=== PATIENT | male | born 1965 | race Caucasian/White ===

== ENCOUNTER 2017-02-02 14:13 | Emergency (ER) | payer OTHER ==
[~2017-02-02] VITALS: Ht 182.9 cm; Wt 64.5 kg
[2017-02-02 14:17] VITALS: TEMP 36.4; Ht 182.9 cm; Wt 64.5 kg
[2017-02-02] MEDS ORDERED: HYDROCODONE/ACETAMOPHEN 5/325MG TAB PO STA (14:59)
[2017-02-02] MEDS ORDERED: CYCLOBENZAPRINE HCL 10 MG TAB PO STA (14:59)
--- NOTE | 2017-02-02 15:44 | DIAGNOSTIC IMAGING REPORT ---
LEFT SHOULDER 3 VIEWS CLINICAL HISTORY: Left shoulder injury and pain. FINDINGS: 3 views of left shoulder are obtained. No prior studies are available for comparison at the time of dictation. The skeletal structures are well mineralized. No fracture or dislocation is seen. The glenohumeral and acromioclavicular joints are preserved. The overlying soft tissues are within normal limits. Imaged left lung parenchyma appears clear. IMPRESSION: Unremarkable radiographic assessment of the left shoulder. Electronically signed by: Fabian Dubon M.D. 02/02/2017 3:42 PM Dictated Date/Time: 02/02/2017 3:41 PM
--- NOTE | 2017-02-02 15:48 | DIAGNOSTIC IMAGING REPORT ---
LEFT ELBOW 3 VIEWS HISTORY: Left elbow pain/injury COMPARISON: None. FINDINGS: There is no fracture or dislocation. Soft tissues are unremarkable. No radiopaque foreign bodies. No elbow effusion. IMPRESSION: No fractures. Electronically signed by: Reed Mayes M.D. 02/02/2017 3:47 PM Dictated Date/Time: 02/02/2017 3:45 PM
[2017-02-02] MEDS ORDERED: TRAM-10 PO (16:11)
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
[2017-02-02 16:29] VITALS: BP 132/87; PULSE 65; O2SAT 97
== END 2017-02-02 16:31 | disposition home or self-care (01) ==
LOC: C.EDB 14:15
DX: S16.1XXA Strain of muscle, fascia and tendon at neck level, initial encounter (principal); S46.912A Strain of unspecified muscle, fascia and tendon at shoulder and upper arm level, left arm, initial encounter; Y04.0XXA Assault by unarmed brawl or fight, initial encounter; F17.210 Nicotine dependence, cigarettes, uncomplicated

== ENCOUNTER 2020-03-11 08:24 | Inpatient (IN) ==
[2020-03-11] MEDS ORDERED: ACETAMINOPHEN 500 MG TAB PO STA (08:56)
--- NOTE | 2020-03-11 09:04 | Emergency Department Note ---
Impression & Plan Sepsis, Cough, Dysuria ED Provider Note CHIEF COMPLAINT: "I don't know if I have the flu or that coronavirus" HISTORY OF PRESENT ILLNESS: 54 year old male patient arrives with complaint of "I will never have the flu or that coronavirus". The patient reports fever, nausea, and fatigue for the past 2 to 3 days. The patient does admit to some dysuria and "passing stones" in his urine for approximately the past week which is not normal for him. He denies any history of kidney stones or UTIs. Patient does report a minimal nonproductive cough. He denies any sore throat, otalgia, congestion, rhinorrhea, chest pain, dyspnea, productive cough. He denies any abdominal pain or flank pain. He denies any known sick contacts, but has been at the [facility] over the past week. Patient has no known Covid-19 contacts. Patient has no history of travel within last 14 days. Interventions prior to arrival: none. Nothing makes symptoms better nor worse. Patient reports no loss of taste and smell. REVIEW OF SYSTEMS: See HPI above for pertinent negative and positive. A 10 system review of systems was performed. Past Medical/Surgical History: none Medications: none Allergies: none PHYSICAL EXAM: VITALS: Blood Pressure 129/80, P 77, R 18, T 38.7C, O2 sat 94% on RA GENERAL: Well appearing, in no acute distress. Non-diaphoretic, well-developed, well-nourished. SKIN: No rashes, erythema, edema, or bruising. Good cap refill. HEAD: Normocephalic atraumatic. EYES: Conjunctivae without injection, sclerae without icterus. NECK: Supple without nuchal rigidity. No lymphadenopathy. LUNGS: Pt. able to speak in full sentences without difficulty. No apparent distress. No retractions or accessory muscle use. ABDOMEN: Soft, nontender to palpation. No CVA tenderness. Non-distended. MUSCULOSKELETAL: Full range of motion without joint tenderness in all extremities. Normal gait. NEURO: Patient was alert and oriented to person place and time. No focal neurological deficits. RADIOLOGY: XR chest 1V portable HISTORY: cough, fever COMPARISON: Chest 05/25/2013. FINDINGS: Hazy bibasilar airspace opacities, right greater than left. Questionable 1 cm nodule within the right upper lobe. However, this likely due to the overlapping ribs and scapula. The heart is normal in size. No pleural effusions. No pneumothorax. IMPRESSION: 1. Hazy bibasilar airspace opacities, right greater than left. This likely represents a pneumonia could be due to viral process. 2. Possible 1 cm nodule within the right upper lobe. Follow-up nonemergent PA and lateral views of the chest or chest CT can be performed once the patient's pneumonia has resolved. ACT 112: Negative or not required by law. Electronically signed by: Reed Mayes M.D. 03/11/2020 1:10 PM KUB HISTORY: dysuria, "passing stones", fever COMPARISON: Abdominal series 05/25/2013. FINDINGS: The bowel gas pattern is unremarkable. There are no dilated loops of small bowel to suggest an obstruction. Calcifications in the deep pelvis likely represent phleboliths. There is a 4 mm stone within the lower pole of the left kidney. There is an additional punctate stone within the interpolar region of the left kidney. No definite right renal calculi. No ureteral calculi. No pneumoperitoneum or pneumatosis. IMPRESSION: Left-sided nephrolithiasis. No ureteral calculi. ACT 112: Negative or not required by law. Electronically signed by: Reed Mayes M.D. 03/11/2020 1:08 PM ABDOMEN AND PELVIS CT WITHOUT CONTRAST CT DOSE: 520.27 mGycm HISTORY: dysuria, leukocytosis, abdominal pain, fever TECHNIQUE: Multiaxial CT images of the abdomen and pelvis were performed without contrast. A dose lowering technique was utilized adhering to the principles of ALARA. COMPARISON STUDY: KUB 03/03/2020. Abdomen and pelvis CT 05/24/2013. FINDINGS: Patchy groundglass densities within the lower lobes posteriorly this favors atelectasis. A pneumonia could also have a similar appearance. Stable 3 mm nodule within the right middle lobe on image 21. Therefore, this is considered to be benign. No pneumoperitoneum. No pneumatosis. No fractures within the visualized osseous structures. The unenhanced liver, gallbladder, pancreas, spleen, and adrenal glands unremarkable. There is a punctate stone within the right kidney and a 4 mm stone within the lower pole of the left kidney. Minimal bilateral perinephric edema/fat stranding. This is similar to the prior study and is therefore likely chronic. No ureteral stones. No hydronephrosis. Normal caliber abdominal aorta. No retroperitoneal lymphadenopathy. Fluid-filled nondilated large and small bowel. No evidence for bowel obstruction. Moderate bladder wall thickening. The prostate gland is enlarged measuring 6.2 cm in diameter. There is also mild fat stranding simmons rrounding the prostate gland, seminal vesicles, and bladder. Therefore, these findings raise the possibility of prostatitis/cystitis. Suboptimal evaluation for bowel pathology due to the lack of intravenous and oral contrast. However, there is no definite bowel wall thickening. Normal appendix. IMPRESSION: 1. Moderate bladder wall thickening. The prostate gland is enlarged measuring 6.2 cm in diameter. There is also mild fat stranding surrounding the prostate gland, seminal vesicles, and bladder. Therefore, these findings raise the possibility of prostatitis/cystitis. 2. Bilateral nephrolithiasis. No ureteral stones. No hydronephrosis. 3. Fluid-filled nondilated large and small bowel. This raises the possibility of a superimposed diarrheal illness. No definite bowel wall thickening or o bstruction. 4. Patchy groundglass densities within the lower lobes posteriorly favor atelectasis. A pneumonia could also have a similar appearance. ACT 112: Negative or not required by law. Electronically signed by: Reed Mayes M.D. 03/11/2020 2:34 PM EMERGENCY DEPARTMENT COURSE/MDM: Patient evaluated while in full PPE and abiding by airborne precautions. Patient is in no distress, is not hypoxic and has no tachypnea. They look well and are non-toxic appearing. Patient is complaining of dysuria and "passing stones", so I did recommend a urinalysis. Unfortunately, the patient had urinated just prior to evaluation. Patient was given plenty of oral fluids and acetaminophen for fever. Covid-19 test obtained and is pending. Urinalysis positive for nitrates, bacteria, leukocyte esterase. This is concerning for urinary tract infection. At this time, repeat vital signs do show that the patient is not hypoxic. I did recommend laboratory evaluation and IV hydration and antibiotics. The patient was agreeable. IV access obtained, labs drawn. Patient was medicated with IV Rocephin and 1 L IV fluids. Labs reviewed and do show a leukocytosis of greater than 20,000 and left shift. Anemia with hemoglobin of 12.3 and hematocrit of 37.1. No thrombocytopenia. Renal, hepatic function and electrolytes without significant abnormality. KUB and chest x-ray completed. These are concerning for left-sided nephrolithiasis, no ureteral calculi, and hazy bibasilar airspace opacities, right greater than left which could be associated with a viral pneumonia. I discussed findings and recommendation for CT imaging with the patient on the phone due to isolation precautions. The patient was agreeable. Patient given second liter of IV fluids. I discussed case with my attending physician. We did elect to complete CT of the abdomen/pelvis to evaluate for possible septic stone. This was completed and consistent with moderate bladder wall thickening, prostatitis, possible pneumonia versus atelectasis in the lower lobes of the lungs. I discussed the findings with the patient on the phone in the room. He was agreeable to admission. I discussed case with the aircraft manager. I discussed the case with the [facility] hospitalist physician, Dr. Bryan regarding admission. He did agree to see and evaluate the patient for inpatient management. Please see hospitalist dictation regarding ongoing management care. Differential diagnosis includes Covid-19, influenza, URI, sinusitis, pharyngitis, bronchitis, pneumonia, UTI, pyelonephritis, nephrolithiasis, sep sis, malignancy, among others. I attest that I have personally reviewed the patient's current medication list. Patient was found to have normal blood pressure on screening and does not require follow-up. The chart was completed utilizing [employer] Speech voice recognition software. Grammatical errors, random word insertions, pronoun errors, and incomplete sentences are an occasional consequence of this system due to software limitations, ambient noise, and hardware issues. Any formal questions or concerns about the content, text, or information contained within the body of this dictation should be directly addressed to the provider for clarification. Past Med/Surg History Medical History Blepharitis of both eyes Social History Preferred Language: Taiwanese Communication Ability: Effective Classroom Monitor Required: No Beliefs That Will Affect Care: None Current Living Situation: Family Feels Safe at Home: Yes Smoking Status: Current every day smoker Tobacco Type: cigarettes ; Cigarettes Per Day: 1PPD ; Second Hand Exposure: No ; Hx Alcohol Use: Yes Hx Substance Use: No Allergies Allergies Allergy/AdvReac Type Severity Reaction Status Date / Time No Known Allergies Allergy Verified 03/11/20 10:00 Home Meds Home Medications Medication Instructions Recorded Confirmed No Known Home Medications 03/11/20 03/11/20 Results & Data (ED) Vital Signs Vital Signs - 24 hr 03/11/20 08:30 03/11/20 12:00 03/11/20 12:06 Temperature 38.7 C H Temperature Source Oral Pulse Rate 77 Pulse Rate [Right Finger] 70 Pulse Rate from SpO2 Sensor Pulse Rhythm [Right Finger] Regular Pulse Strength [Right Finger] Normal Respiratory Rate 18 20 Respiratory Effort / Characteristics Non-Labored Non-Labored Spontaneous Respiratory Depth Normal Normal Respiratory Pattern Regular Blood Pressure 129/80 Blood Pressure [Right Arm] 87/55 L Blood Pressure Mean 96 Blood Pressure Mean [Right Arm] 65 Blood Pressure Position Sitting Pulse Oximetry 94 93 Oxygen Delivery Method Room Air Room Air Room Air Sepsis Recent Fever Within 48 Hours Yes Sepsis Action Taken by Nursing No Action Required 03/11/20 13:11 03/11/20 13:35 03/11/20 13:37 Temperature Temperature Source Pulse Rate 70 68 Pulse Rate [Right Finger] 65 Pulse Rate from SpO2 Sensor Pulse Rhythm [Right Finger] Pulse Strength [Right Finger] Respiratory Rate 18 19 17 Respiratory Effort / Characteristics Non-Labored Spontaneous Respiratory Depth Normal Respiratory Pattern Regular Blood Pressure 98/55 L Blood Pressure [Right Arm] 93/58 L Blood Pressure Mean 74 Blood Pressure Mean [Right Arm] 69 Blood Pressure Position Pulse Oximetry 94 Oxygen Delivery Method Room Air Sepsis Recent Fever Within 48 Hours Sepsis Action Taken by Nursing 03/11/20 14:00 03/11/20 14:01 03/11/20 14:30 Temperature Temperature Source Pulse Rate 64 64 67 Pulse Rate [Right Finger] Pulse Rate from SpO2 Sensor 67 Pulse Rhythm [Right Finger] Pulse Strength [Right Finger] Respiratory Rate 19 17 20 Respiratory Effort / Characteristics Respiratory Depth Respiratory Pattern Blood Pressure 100/64 Blood Pressure [Right Arm] Blood Pressure Mean 77 Blood Pressure Mean [Right Arm] Blood Pressure Position Pulse Oximetry 93 Oxygen Delivery Method Sepsis Recent Fever Within 48 Hours Sepsis Action Taken by Nursing 03/11/20 15:00 Temperature Temperature Source Pulse Rate 72 Pulse Rate [Right Finger] Pulse Rate from SpO2 Sensor 71 Pulse Rhythm [Right Finger] Pulse Strength [Right Finger] Respiratory Rate 21 Respiratory Effort / Characteristics Respiratory Depth Respiratory Pattern Blood Pressure Blood Pressure [Right Arm] Blood Pressure Mean Blood Pressure Mean [Right Arm] Blood Pressure Position Pulse Oximetry 94 Oxygen Delivery Method Sepsis Recent Fever Within 48 Hours Sepsis Action Taken by Nursing Laboratory Data Result diagrams: 03/11/20 11:50 03/11/20 11:50 Lab Results 03/11/20 03/11/20 03/11/20 Range/Units 09:45 11:43 11:50 WBC 20.84 H (4.8-10.8) K/uL RBC 4.02 L (4.7-6.1) M/uL Hgb 12.3 L (14.0-18.0) g/dL Hct 37.1 L (42-52) % MCV 92.3 (80-100) fL MCH 30.6 (25-34) pg MCHC 33.2 (32-36) g/dL RDW Std Deviation 44.8 (36.4-46.3) fL RDW Coeff of Roger 13.2 (11.5-14.5) % Plt Count 227 (130-400) K/uL MPV 9.4 (7.4-10.4) fL Immature Gran % (Auto) 0.5 % Neut % (Auto) 85.7 % Lymph % (Auto) 5.6 % Duchesne % (Auto) 8.1 % Eos % (Auto) 0.0 % Baso % (Auto) 0.1 % Neut # (Auto) 17.87 H (1.4-6.5) K/uL Lymph # (Auto) 1.16 L (1.2-3.4) K/uL Duchesne # (Auto) 1.69 H (0.11-0.59) K/uL Eos # (Auto) 0.00 (0-0.5) K/uL Baso # (Auto) 0.02 (0-0.2) K/uL Immature Gran # (Auto) 0.10 H (0.00-0.02) K/uL Sodium (136-145) mmol/L Potassium (3.5-5.1) mmol/L Chloride (98-107) mmol/L Carbon Dioxide (21-32) mmol/L Anion Gap (3-11) BUN (7-18) mg/dl Creatinine (0.6-1.4) mg/dl Est Cr Clr Drug Dosing ml/min Est GFR ( Amer) Est GFR (Non-Af Amer) BUN/Creatinine Ratio (10-20) Glucose (70-99) mg/dl Lactate 0.7 (0.4-2.0) mmol/L Calcium (8.5-10.1) mg/dl Total Bilirubin (0.2-1) mg/dl AST (15-37) U/L ALT (12-78) U/L Alkaline Phosphatase (45-117) U/L Total Protein (6.4-8.2) gm/dl Albumin (3.4-5.0) gm/dl Globulin (2.5-4.0) gm/dl Albumin/Globulin Ratio (0.9-2) Urine Color Urine Appearance (Clear) Urine pH (4.5-7.5) Ur Specific Mellen (1.000-1.030) Urine Protein (Negative) Urine Glucose (UA) (Negative) Urine Ketones (Negative) Urine Blood (Negative) Urine Nitrite (Negative) Urine Bilirubin (Negative) Urine Urobilinogen (Negative) Ur Leukocyte Esterase (Negative) Urine WBC (Auto) (0-5) /hpf Urine RBC (Auto) (0-4) /hpf U Hyaline Cast (Auto) (0-5) /lpf U Epithel Cells (Auto) (0-5) /lpf Urine Bacteria (Auto) (Negative) SARS-CoV-2 RNA (RT-PCR) Cancelled 03/11/20 03/11/20 Range/Units 11:50 Unknown WBC (4.8-10.8) K/uL RBC (4.7-6.1) M/uL Hgb (14.0-18.0) g/dL Hct (42-52) % MCV (80-100) fL MCH (25-34) pg MCHC (32-36) g/dL RDW Std Deviation (36.4-46.3) fL RDW Coeff of Roger (11.5-14.5) % Plt Count (130-400) K/uL MPV (7.4-10.4) fL Immature Gran % (Auto) % Neut % (Auto) % Lymph % (Auto) % Duchesne % (Auto) % Eos % (Auto) % Baso % (Auto) % Neut # (Auto) (1.4-6.5) K/uL Lymph # (Auto) (1.2-3.4) K/uL Duchesne # (Auto) (0.11-0.59) K/uL Eos # (Auto) (0-0.5) K/uL Baso # (Auto) (0-0.2) K/uL Immature Gran # (Auto) (0.00-0.02) K/uL Sodium 134 L (136-145) mmol/L Potassium 3.6 (3.5-5.1) mmol/L Chloride 104 (98-107) mmol/L Carbon Dioxide 25 (21-32) mmol/L Anion Gap 5.0 (3-11) BUN 18 (7-18) mg/dl Creatinine 1.15 (0.6-1.4) mg/dl Est Cr Clr Drug Dosing 67.0 ml/min Est GFR ( Amer) 83.7 Est GFR (Non-Af Amer) 72.3 BUN/Creatinine Ratio 15.8 (10-20) Glucose 115 H (70-99) mg/dl Lactate (0.4-2.0) mmol/L Calcium 8.8 (8.5-10.1) mg/dl Total Bilirubin 1.2 H (0.2-1) mg/dl AST 46 H (15-37) U/L ALT 76 (12-78) U/L Alkaline Phosphatase 177 H (45-117) U/L Total Protein 6.9 (6.4-8.2) gm/dl Albumin 2.9 L (3.4-5.0) gm/dl Globulin 4.0 (2.5-4.0) gm/dl Albumin/Globulin Ratio 0.7 L (0.9-2) Urine Color Hewett Urine Appearance Cloudy A (Clear) Urine pH 5.0 (4.5-7.5) Ur Specific Mellen 1.023 (1.000-1.030) Urine Protein 2+ H (Negative) Urine Glucose (UA) Negative (Negative) Urine Ketones Negative (Negative) Urine Blood 1+ H (Negative) Urine Nitrite Positive A (Negative) Urine Bilirubin Negative (Negative) Urine Urobilinogen Negative (Negative) Ur Leukocyte Esterase 2+ H (Negative) Urine WBC (Auto) >30 H (0-5) /hpf Urine RBC (Auto) 5-10 H (0-4) /hpf U Hyaline Cast (Auto) 0 (0-5) /lpf U Epithel Cells (Auto) 5-10 H (0-5) /lpf Urine Bacteria (Auto) 1+ H (Negative) SARS-CoV-2 RNA (RT-PCR) Administered Medications Discontinued Medications Acetaminophen (Tylenol) 1,000 mg PO NOW STA Stop: 03/11/20 08:57 Last Admin: 03/11/20 09:43 Dose: 1,000 mg Documented by: [id number] Ceftriaxone Sodium (Rocephin) 1,000 mg in 50 mls @ 100 mls/hr IV NOW STA Stop: 03/11/20 11:51 Last Infusion: 03/11/20 12:43 Dose: 0 mls/hr Documented by: [id number] Admin: 03/11/20 11:54 Dose: 100 mls/hr Documented by: [id number] Sodium Chloride (Nss 1000ml) 1,000 mls @ 999 mls/hr IV .Q1H1M ONE Stop: 03/11/20 12:22 Last Infusion: 03/11/20 13:16 Dose: 0 mls/hr Documented by: [id number] Admin: 03/11/20 11:54 Dose: 999 mls/hr Documented by: [id number] Sodium Chloride (Nss 1000ml) 1,000 mls @ 999 mls/hr IV .Q1H1M ONE Stop: 03/11/20 14:22 Last Admin: 03/11/20 13:58 Dose: 999 mls/hr Documented by: [id number] Discharge Plan Visit Data Chief Complaint: Fever Stated Complaint: FEVER,NAUSEA, ED Provider: Corwin Ray ED Midlevel Provider: Rebecca May Discharge Problem: Sepsis, Cough, Dysuria Patient Disposition: Admitted As Inpatient Condition: Good Forms Stand Alone Forms: [facility], [facility], Virtual Emergency Department, Important Visit Information Prescriptions Prescriptions: No Action No Known Home Medications RF: 0 Referrals Referrals: PCP,NO [Primary Care Provider] - Discharge Problem: Sepsis Qualifiers: Sepsis type: sepsis due to unspecified organism Sepsis acute organ dysfunction status: unspecified Qualified Code(s): A41.9 - Sepsis, unspecified organism
[2020-03-11 10:59] LABS: Appearance Urine Cloudy (Clear); Bacteria Urine Automated 1+ (Negative); Blood Urine 1+ (Negative); Color Urine Orange; Glucose Urine UA Negative (Negative); Ketones Urine Negative (Negative); Leukocyte Esterase Urine 2+ (Negative); Nitrite Urine Positive (Negative); Protein Urine 2+ (Negative); Specific Gravity Urine 1.023 (1.000-1.030); Urobilinogen Urine Negative (Negative); WBC Urine Automated >30 /hpf (0-5)
[2020-03-11 11:08] LABS: Bilirubin Urine Negative (Negative); Ictotest Urine Negative (Negative)
[2020-03-11 11:17] LABS: Cast Urine Automated 0 /lpf (0-5)
[2020-03-11] MEDS ORDERED: SODIUM CHLORIDE 0.9% 1000ML 1,000 ML IV ONE ×2 (11:22→13:22)
[2020-03-11] MEDS ORDERED: cefTRIAXone SODIUM 1,000 MG/50 ML BAG IV STA (11:22)
[2020-03-11 12:10] LABS: Basophils # (auto) 0.02 K/uL (0-0.2); Basophils % (auto) 0.1 %; Hematocrit (blood only) 37.1 % (42-52); Hemoglobin 12.3 g/dL (14.0-18.0); Immature Granulocytes % (auto) 0.5 %; Lymphocytes # (auto) 1.16 K/uL (1.2-3.4); Lymphocytes % (auto) 5.6 %; Mean Corpuscular Hemoglobin 30.6 pg (25-34); Mean Corpuscular Hgb Conc 33.2 g/dL (32-36); Mean Corpuscular Volume 92.3 fL (80-100); Mean Platelet Volume 9.4 fL (7.4-10.4); Monocytes # (auto) 1.69 K/uL (0.11-0.59); Monocytes % (auto) 8.1 %; Neutrophils # (auto) 17.87 K/uL (1.4-6.5); Neutrophils % (auto) 85.7 %; Platelet Count 227 K/uL (130-400); RDW Coefficient of Variation 13.2 % (11.5-14.5); RDW Standard Deviation 44.8 fL (36.4-46.3); Red Blood Count 4.02 M/uL (4.7-6.1); White Blood Count 20.84 K/uL (4.8-10.8)
[2020-03-11 12:27] LABS: Albumin Level 2.9 gm/dl (3.4-5.0); BUN Creatinine Ratio 15.8 (10-20); Calcium 8.8 mg/dl (8.5-10.1); Est GFR (African American) 83.7; Est GFR (Non-African American) 72.3; Potassium 3.6 mmol/L (3.5-5.1)
[2020-03-11 12:30] LABS: Albumin Globulin Ratio 0.7 (0.9-2); Bilirubin,Total 1.2 mg/dl (0.2-1); Total Protein 6.9 gm/dl (6.4-8.2)
--- NOTE | 2020-03-11 13:09 | XRay Report ---
KUB HISTORY: dysuria, "passing stones", fever COMPARISON: Abdominal series 05/25/2013. FINDINGS: The bowel gas pattern is unremarkable. There are no dilated loops of small bowel to suggest an obstruction. Calcifications in the deep pelvis likely represent phleboliths. There is a 4 mm sto ne within the lower pole of the left kidney. There is an additional punctate stone within the interpo lar region of the left kidney. No definite right renal calculi. No ureteral calculi. No pneumoperiton eum or pneumatosis. IMPRESSION: Left-sided nephrolithiasis. No ureteral calculi. ACT 112: Negative or not required by law. Electronically signed by: Reed Mayes M.D. 03/11/2020 1:08 PM
--- NOTE | 2020-03-11 13:12 | XRay Report ---
XR chest 1V portable HISTORY: cough, fever COMPARISON: Chest 05/25/2013. FINDINGS: Hazy bibasilar airspace opacities, right greater than left. Questionable 1 cm nodule within the right upper lobe. However, this likely due to the overlapping ribs and scapula. The heart is nor mal in size. No pleural effusions. No pneumothorax. IMPRESSION: 1. Hazy bibasilar airspace opacities, right greater than left. This likely represents a pneumonia cou ld be due to viral process. 2. Possible 1 cm nodule within the right upper lobe. Follow-up nonemergent PA and lateral views of th e chest or chest CT can be performed once the patient's pneumonia has resolved. ACT 112: Negative or not required by law. Electronically signed by: Reed Mayes M.D. 03/11/2020 1:10 PM
--- NOTE | 2020-03-11 14:35 | CT Scan Report ---
ABDOMEN AND PELVIS CT WITHOUT CONTRAST CT DOSE: 520.27 mGycm HISTORY: dysuria, leukocytosis, abdominal pain, fever TECHNIQUE: Multiaxial CT images of the abdomen and pelvis were performed without contrast. A dose lo wering technique was utilized adhering to the principles of ALARA. COMPARISON STUDY: KUB 03/03/2020. Abdomen and pelvis CT 05/24/2013. FINDINGS: Patchy groundglass densities within the lower lobes posteriorly this favors atelectasis. A pneumonia could also have a similar appearance. Stable 3 mm nodule within the right middle lobe on im age 22. Therefore, this is considered to be benign. No pneumoperitoneum. No pneumatosis. No fractures within the visualized osseous structures. The unenhanced liver, gallbladder, pancreas, spleen, and a drenal glands unremarkable. There is a punctate stone within the right kidney and a 4 mm stone within the lower pole of the left kidney. Minimal bilateral perinephric edema/fat stranding. This is simila r to the prior study and is therefore likely chronic. No ureteral stones. No hydronephrosis. Normal c aliber abdominal aorta. No retroperitoneal lymphadenopathy. Fluid-filled nondilated large and small b owel. No evidence for bowel obstruction. Moderate bladder wall thickening. The prostate gland is enla rged measuring 6.2 cm in diameter. There is also mild fat stranding surrounding the prostate gland, s eminal vesicles, and bladder. Therefore, these findings raise the possibility of prostatitis/cystitis . Suboptimal evaluation for bowel pathology due to the lack of intravenous and oral contrast. However , there is no definite bowel wall thickening. Normal appendix. IMPRESSION: 1. Moderate bladder wall thickening. The prostate gland is enlarged measuring 6.2 cm in diameter. The re is also mild fat stranding surrounding the prostate gland, seminal vesicles, and bladder. Therefor e, these findings raise the possibility of prostatitis/cystitis. 2. Bilateral nephrolithiasis. No ureteral stones. No hydronephrosis. 3. Fluid-filled nondilated large and small bowel. This raises the possibility of a superimposed diarr heal illness. No definite bowel wall thickening or obstruction. 4. Patchy groundglass densities within the lower lobes posteriorly favor atelectasis. A pneumonia cou ld also have a similar appearance. ACT 112: Negative or not required by law. Electronically signed by: Reed Mayes M.D. 03/11/2020 2:34 PM
[2020-03-11] MEDS ORDERED: SODIUM CHLORIDE 0.9% 1000ML 1,000 ML IV SCH (15:14)
--- NOTE | 2020-03-11 15:16 | History & Physical Report ---
Date of Service March 11, 2020 Assessment & Plan (1) Sepsis: NSS 3L IV bolus given in ER, continue hydration with LR 125 ml/hr Lactic acid WNL COVID-19 testing negative Blood/urine cultures pending Source prostatitis/cystitis as below Do not suspect bacterial PNA based on CXR/history/examination findings despite elevated procalcitonin, most likely represents atelectasis or viral PNA. No hypoxia. (2) Acute bacterial prostatitis: Ceftriaxone 1g IV daily Broaden antibiotics if patient not responding in next 24 hours or decompensates Avoid ciprofloxacin due to history of antibiotic associated diarrhea (3) Tobacco use disorder: Declined tobacco replacement products Not interested in quitting currently (4) Pulmonary nodule: Given extensive smoking history recommend non-emergent CT as follow up after acute illness resolved. (5) DVT prophylaxis: SCDs Young age and mobile therefore chemical prophylaxis not indicated Admission and Anticipated Discharge Date Admission Date: 03/11/2020 History of Present Illness Chief Complaint: Fever Primary Care Provider: NO PCP Crescencio Ramires is a 54 year old male who presents to the ER with 3 days of fever. He has had a cough but no shortness of breath and notes no known contact with anyone with COVID-19. He smokes an reports usually having a cough and does not think it is particularly different from his baseline. He reports 2 weeks of dysuria which has not been getting worse. Associated passing urinary "stones" during this time. No change in urinary frequency color or smell. No flank tenderness. No abdominal pain, nausea, vomiting, constipation, diarrhea, melena or bright red blood in stool. He denies any chest pain, shortness of breath, pa lpitations, orthopnea, PND, claudication, presyncope or syncope. In the ER he was noted to be hypotensive and initially did not mention his urine. UA was concerning for UTI and he was treated with ceftriaxone. After 2L NSS bolus his blood pressure improved and feels like he wants to go home. He notes smoking 1 pack cigarettes per day. No desire to quit. Does not feel he needs nicotine replacement products. Allergies Allergy/AdvReac Type Severity Reaction Status Date / Time No Known Allergies Allergy Verified 03/11/20 10:00 Home Medications Home Medications Medication Instructions Recorded Confirmed Type No Known Home Medications 03/11/20 03/11/20 History Past Med/Surg History Medical History (Updated 06/29/20 @ 08:34 by Hugo Bryan MD) Antibiotic-associated diarrhea Blepharitis of both eyes Surgical History Hx of right cataract extraction Family History Mother Family history of diabetes mellitus Social History Preferred Language: Kazakh Communication Ability: Impaired Director Of Special Education Required: No Beliefs That Will Affect Care: None Current Living Situation: Family Other Information That Helps Us Care for You: No Feels Safe at Home: Yes Safety Concerns: Feels Safe At This Time Smoking Status: Current every day smoker Tobacco Type: cigarettes ; Cigarettes Per Day: 1PPD ; Second Hand Exposure: No ; Tobacco Cessation Education Requested by Patient: No Hx Alcohol Use: No Hx Substance Use: No Review of Systems Review of Systems: All systems reviewed & are unremarkable except as noted in HPI & below Physical Exam Constitutional: well developed; + not well nourished and no acute distress Eyes: + anicteric sclerae; normal pupil size ENMT: external ear and nose normal, oropharynx normal Neck: trachea midline, no thyromegaly Respiratory: normal respiratory effort; no respiratory distress Auscultation: lungs clear to auscultation bilaterally; no diminished lung sounds, no crackles, no rales, no rhonchi and no wheezes Cardiovascular: RRR, no murmur, no edema Gastrointestinal (Abdomen): normal bowel sounds, soft, nontender, no hepatosplenomegaly Musculoskeletal: no cyanosis or clubbing, extremities motor strength 5/5 Skin: no rashes, warm and dry Neurologic: moves all extremities and awake; no focal motor deficits and not confused Speech / Cognition: normal speech Motor/Sensory: no tremor and no pronator drift Psychiatric: Orientation: alert and oriented x 3 Apperance: + disheveled Eye Contact: good eye contact Motor Behavior: no abnormal motor movements Speech: normal rate/rhythm/volume of speech Affect: euthymic affect Insight: + limited insight Genitourinary: no CVA tenderness Lymphatic: no cervical or axillary lymphadenopathy Results & Data Results & Data ([facility]) Vital Signs (Past 12 Hours) Vital Signs Temp Pulse Pulse Resp BP BP Pulse Ox 03/11/20 14:30 67 20 93 03/11/20 14:01 64 17 03/11/20 14:00 64 19 100/64 03/11/20 13:37 68 17 03/11/20 13:35 70 19 98/55 L 03/11/20 13:11 65 18 93/58 L 94 03/11/20 12:06 70 20 87/55 L 93 03/11/20 08:30 38.7 C H 77 18 129/80 94 Diagnostic Findings XR chest 1V portable IMPRESSION: 1. Hazy bibasilar airspace opacities, right greater than left. This likely represents a pneumonia could be due to viral process. 2. Possible 1 cm nodule within the right upper lobe. Follow-up nonemergent PA and lateral views of the chest or chest CT can be performed once the patient's pneumonia has resolved. ABDOMEN AND PELVIS CT WITHOUT CONTRAST IMPRESSION: 1. Moderate bladder wall thickening. The prostate gland is enlarged measuring 6.2 cm in diameter. There is also mild fat stranding surrounding the prostate gland, seminal vesicles, and bladder. Therefore, these findings raise the possibility of prostatitis/cystitis. 2. Bilateral nephrolithiasis. No ureteral stones. No hydronephrosis. 3. Fluid-filled nondilated large and small bowel. This raises the possibility of a superimposed diarrheal illness. No definite bowel wall thickening or obstruction. 4. Patchy groundglass densities within the lower lobes posteriorly favor atelectasis. A pneumonia could also have a similar appearance. KUB IMPRESSION: Left-sided nephrolithiasis. No ureteral calculi. Code Status & VTE Plan Code Status DNR/DNI as per patient wishes - discussed in some detail with patient and he displayed competency in making this decision VTE Prophylaxis Plan VTE Prophylaxis will be ordered: Yes Reason for no VTE drug order: Treatment not indicated PG Care Time/CCT Total # of Minutes Spent Total Time Spent with Patient: Total time spent is greater than 50% in coordination of care (as documented) at patient's floor/unit and/or counseling patient: Coding Level of Care Code 26123 Initial Inpt Care Lvl 3 Diagnoses Sepsis A41.9 Sepsis acute organ dysfunction status: unspecified Sepsis type: sepsis due to unspecified organism Acute bacterial prostatitis N41.0 Tobacco use disorder F17.200 Pulmonary nodule R91.1 DVT prophylaxis Z29.9 (1) Sepsis Sepsis acute organ dysfunction status: unspecified Sepsis type: sepsis due to unspecified organism Qualified Code(s): A41.9 - Sepsis, unspecified organism
[2020-03-11 15:39] LABS: INR 1.3 (0.9-1.1); Partial Thromboplastin Ratio 1.2; Partial Thromboplastin Time 32.4 Seconds (21.0-31.0); Prothrombin Time 13.1 Seconds (9.0-12.0)
[2020-03-11 15:47] LABS: C Reactive Protein 16.3 mg/dl (0-0.29); Ferritin 425.9 ng/ml (8-388)
[2020-03-11 16:16] LABS: D Dimer 670 ug/L FEU (0-500)
[2020-03-11] MEDS ORDERED: POLYETHYLENE (MIRALAX) 17 GM PACK PO PRN (19:08)
[2020-03-11] MEDS ORDERED: ACETAMINOPHEN 325 MG TAB PO PRN (19:08)
[2020-03-11] MEDS ORDERED: MAGNESIUM HYDROXIDE SUSP 30 ML UDC PO PRN (19:08)
[2020-03-11] MEDS ORDERED: ALUMINUM/MAGNESIUM SUSP 30 ML UDC PO PRN (19:08)
[2020-03-11] MEDS ORDERED: ONDANSETRON INJ 2 MG/ML 2 ML VIAL IV PRN (19:08)
[2020-03-11] MEDS: LACTATED RINGER'S 1,000 ML IV SCH (20:07)
[2020-03-12] MEDS: LACTATED RINGER'S 1,000 ML IV SCH (04:25)
[2020-03-12 05:18] LABS: Basophils # (auto) 0.01 K/uL (0-0.2); Basophils % (auto) 0.1 %; Hematocrit (blood only) 35.7 % (42-52); Hemoglobin 11.8 g/dL (14.0-18.0); Immature Granulocytes # (auto) 0.03 K/uL (0.00-0.02); Immature Granulocytes % (auto) 0.2 %; Lymphocytes # (auto) 0.95 K/uL (1.2-3.4); Mean Corpuscular Hemoglobin 30.1 pg (25-34); Mean Corpuscular Hgb Conc 33.1 g/dL (32-36); Mean Corpuscular Volume 91.1 fL (80-100); Mean Platelet Volume 9.6 fL (7.4-10.4); Monocytes # (auto) 0.78 K/uL (0.11-0.59); Monocytes % (auto) 5.7 %; Neutrophils # (auto) 11.86 K/uL (1.4-6.5); Platelet Count 184 K/uL (130-400); RDW Coefficient of Variation 13.5 % (11.5-14.5); RDW Standard Deviation 44.9 fL (36.4-46.3); Red Blood Count 3.92 M/uL (4.7-6.1); White Blood Count 13.63 K/uL (4.8-10.8)
[2020-03-12 06:09] LABS: Albumin Globulin Ratio 0.6 (0.9-2); Albumin Level 2.4 gm/dl (3.4-5.0); BUN Creatinine Ratio 12.6 (10-20); Bilirubin,Total 0.7 mg/dl (0.2-1); Calcium 8.3 mg/dl (8.5-10.1); Creatinine Clr Calc Pharmacy 106.6 ml/min; Est GFR (African American) 122.7; Est GFR (Non-African American) 105.9; Globulin 3.7 gm/dl (2.5-4.0); Potassium 3.5 mmol/L (3.5-5.1); Total Protein 6.1 gm/dl (6.4-8.2)
[2020-03-12] MEDS ORDERED: cefTRIAXone SODIUM 1,000 MG in DEXTROSE 5% 50 ML IV SCH (11:00)
--- NOTE | 2020-03-12 12:24 | Discharge Summary ---
Date of Service March 12, 2020 Admission HPI Per Admitting Provider Crescencio Ramires is a 54 year old male who presents to the ER with 3 days of fever. He has had a cough but no shortness of breath and notes no known contact with anyone with COVID-19. He smokes an reports usually having a cough and does not think it is particularly different from his baseline. He reports 2 weeks of dysuria which has not been getting worse. Associated passing urinary "stones" during this time. No change in urinary frequency color or smell. No flank tenderness. No abdominal pain, nausea, vomiting, constipation, diarrhea, melena or bright red blood in stool. He denies any chest pain, shortness of breath, palpitations, orthopnea, PND, claudication, presyncope or syncope. In the ER he was noted to be hypotensive and initially did not mention his urine. UA was concerning for UTI and he was treated with ceftriaxone. After 2L NSS bolus his blood pressure improved and feels like he wants to go home. He notes smoking 1 pack cigarettes per day. No desire to quit. Does not feel he needs nicotine replacement products. Principal Diagnosis Acute prostatitis Discharge Exam Constitutional: well developed; + not well nourished and no acute distress Eyes: + anicteric sclerae; normal pupil size ENMT: external ear and nose normal, oropharynx normal Neck: trachea midline, no thyromegaly Respiratory: normal respiratory effort; no respiratory distress Auscultation: lungs clear to auscultation bilaterally; no diminished lung sounds, no crackles, no rales, no rhonchi and no wheezes Cardiovascular: RRR, no murmur, no edema Gastrointestinal (Abdomen): normal bowel sounds, soft, nontender, no hepatosplenomegaly Musculoskeletal: no cyanosis or clubbing, extremities motor strength 5/5 Skin: no rashes, warm and dry Neurologic: moves all extremities and awake; no focal motor deficits and not confused Speech / Cognition: normal speech Motor/Sensory: no tremor and no pronator drift Psychiatric: Orientation: alert and oriented x 3 Appearance: + disheveled Eye Contact: good eye contact Motor Behavior: no abnormal motor movements Speech: normal rate/rhythm/volume of speech Affect: euthymic affect Insight: + limited insight Genitourinary: no CVA tenderness Lymphatic: no cervical or axillary lymphadenopathy Discharge Data Allergies Allergy/AdvReac Type Severity Reaction Status Date / Time No Known Allergies Allergy Verified 03/11/20 10:00 Consultations 03/11/20 15:00 ED Decision to Admit Stat Ordered Studies 03/11/20 13:22 CT abd pelvis wo con Stat Hospital Course (1) Sepsis: Had extensive discussion with patient regarding his diagnosis. He wants to leave against medical advice. I explained to patient that he will need antibiotics for about 6 weeks if he does have prostaitis. Will recommend he follows up with his PCP and urology. Issue is culture results have not returned. will have patient on bactrim as this medicine penetrates the prostate. Lactic acid WNL COVID-19 testing negative Blood/urine cultures pending Source prostatitis/cystitis as below Do not suspect bacterial PNA based on CXR/history/examination findings despite elevated procalcitonin, most likely represents atelectasis or viral PNA. No hypoxia. (2) Acute bacterial prostatitis: Ceftriaxone 1g IV daily Broaden antibiotics if patient not responding in next 24 hours or decompensates Avoid ciprofloxacin due to history of antibiotic associated diarrhea You will need to be discharged on bactrim for 6 weeks to cover for acute prostatitis. Bactrim has good prostatic penetration. (3) Tobacco use disorder: Declined tobacco replacement products Not interested in quitting currently (4) Pulmonary nodule: Given extensive smoking history recommend non-emergent CT as follow up after acute illness resolved. will defer to pcp. (5) DVT prophylaxis: SCDs Young age and mobile therefore chemical prophylaxis not indicated Total Time Total Time Spent Total Time Spent (In Minutes): 32 Total Time Includes: Examination of the Patient, Discharge Planning and Medication Reconciliation Discharge Plan Discharge Items Patient Disposition: Home - Self-Care Reason For Visit: SEPSIS, PROSTATITIS, R/O COVID Discharge Diagnosis: prostatitis Condition on Discharge: Good Activity: Resume your previous activity Non-emergency contact: Primary Care Provider Call non-emergency contact if: you have any medication questions Follow-up/Referrals: PCP,NO [Primary Care Provider] - Diet: Regular Addtl Attending Provider Instructions: You were found to have acute bacterial prostatitis. Will need antibiotics for 6 weeks. This will be empiric antibiotics as you decided to leave before the cultures came back. You should understanding of this. I also informed your mother. You will need 6 weeks of antibiotics. Will recommend followup with Urology within 1 month And PCP followup in 1-2 weeks. Start taking antibiotics in 6 weeks. Pending Studies at Discharge: No Stand-Alone Forms: [facility], Smoking Cessation Medications and DC Order Prescriptions: New sulfamethoxazole-trimethoprim [Bactrim DS] 800-160 mg tablet 1 tab PO BID 42 Days Qty: 84 RF: 0 No Action No Known Home Medications RF: 0 Discharge Orders: Discharge Order (Routine); Ordered 03/12/20 Ordered By: Mario Galan/Other Patient Handouts: Bacterial Prostatitis, Urinary Tract Infections in Men Admission Data Admit Date/Time: 03/11/20 15:12 Attending Provider: Mario Mullins Admit Provider: Hugo Bryan Primary Care Provider: PCP,NO Other Providers: Hugo Bryan Other Interventions: Discharge Summary Assessment (RN) Last Done: 03/12/20 12:16 DC Date/Time DO NOT enter until pt leaves facility: 03/12/20 12:32 Coding Level of Care Code D/C Day Management >30 mins Diagnoses Sepsis A41.9 Sepsis acute organ dysfunction status: unspecified Sepsis type: sepsis due to unspecified organism Acute bacterial prostatitis N41.0 Tobacco use disorder F17.200 Pulmonary nodule R91.1 DVT prophylaxis Z29.9 Time Spent (min) 32
== END 2020-03-12 12:32 | disposition home or self-care (01) | DRG 872 ==
LOC: ED 08:24 → SUATTDRO 15:12 → 2S 15:12

== ENCOUNTER 2023-08-12 09:02 | Inpatient (IN) ==
[2023-08-12] MEDS ORDERED: fentaNYL citrate PF 100 MCG/2 ML VIAL IV STA (09:48)
--- NOTE | 2023-08-12 09:49 | Emergency Department Note ---
Impression & Plan Hypoxia, Neck pain, Metastatic carcinoma, Lung cancer, Failure to thrive in adult ED Provider Note Provider: Brian Garcia MD DATE OF SERVICE: 08/12/2023 CHIEF COMPLAINT: Weakness, neck pain HISTORY OF PRESENT ILLNESS: Patient is a 58-year-old gentleman referred from pulmonary clinic due to unfortunate history of what appears to be lung cancer metastatic and in decline. Received call from Callum Ott in the pulmonary office and reviewed his note from today noted in the chart. Patient with recent biopsy of the neck worsening pain in the neck and difficult pain control at home. Discussion with the patient and his mother who he lives with at home patient states he has not eaten the last 24 hours not eating that well. Mother states he just sleeps all day and pain control has been somewhat difficult. Not normally on oxygen. Fall several days ago but not today. Has seen oncology by report and not a candidate for treatment. PAST MEDICAL HISTORY: As noted above MEDICATIONS: Reviewed home medications SOCIAL HISTORY: Lives with mother, smoker PHYSICAL EXAM: GENERAL: alert and oriented but very fatigued and cachectic in appearance sitting in wheelchair upon initial evaluation Head: normocephalic and atraumatic EYES: No injection, discharge or icterus. NECK: Trachea midline. Supple. ENT: Mucous membranes pink and moist. LUNGS: Airway patent. No retractions. Breath sounds generally diminished and coarse HEART: Regular rate and rhythm. No chest wall tenderness ABDOMEN: Soft and non-tender, without guarding or rebound. SKIN: Acyanotic, warm, dry, without rashes EXTREMITIES: Without swelling, tenderness or deformity NEUROLOGICAL: No focal deficits. No aphasia. No facial droop or slurred speech. EK bpm sinus tachycardia first-degree AV block. No PVC. Left axis with incomplete right bundle branch block is noted. No clear acute ST segment elevation with LVH findings. QTc 439. CONTINUOUS CARDIAC MONITORING: was ordered and showed a heart rate of 90s-100s bpm in first grade heart block sinus to sinus tachycardia PDMP was checked without noted issue. Patient's laboratory studies and imaging reviewed. Differential includes Infection, dehydration, metabolic abnormality, hypo/hyperglycemia, electrolyte disturbance, anemia, hypoxia, cardiac sources, intracerebral event, toxicologic, neurologic, as well as other pathologies. IMPRESSION/MEDICAL DECISION MAKING: Discussed with patient and mother initially in triage area. Now with oxygen requirement and unfortunately metastatic lung cancer with limited options for treatment by report. Reviewed note from pulmonary office today referring him here with concerns for decline and need for hospitalization for possible hospice set up. Discussed with her case management here. Does have new significant ox requirement of 6 L. Given some IV fluids given his general decreased intake. Small bowel fentanyl given for pain control reports of pain in the right neck. Discussed with him and mother at bedside candidly unfortunately his condition and prognosis is quite poor and that coming in for pain and symptom control and transition to hospice would be the most prudent step. Chest x-ray completed here shows evidence of worsening opacification of the right lung likely more related to his underlying lung cancer and have low suspicion that this is bacterial pneumonia at this time. Blood work surprisingly is not severely abnormal with very slight white blood cell count and minimal anemia. No severe electrolyte abnormalities signs of renal dysfunction at this time. Troponin normal. Patient is thin and gaunt in poor condition and was in agreement the plan to come in for symptom control. Discussed with the hospitalist team DIAGNOSIS: Metastatic lung cancer, hypoxia, weakness/failure to thrive, neck pain DISPOSITION: Hospitalist will evaluate Patient was agreeable with this plan. Past Med/Surg History Medical History Antibiotic-associated diarrhea Blepharitis of both eyes DVT (deep venous thrombosis) Surgical History Hx of right cataract extraction Family History Mother Family history of diabetes mellitus Social History (Updated 08/10/23 @ 09:46 by Yue Li LPN) Smoking Status: Current every day smoker Tobacco Type: Cigarettes Cigarettes Per Day: 20; Second Hand Exposure: No; Do You Dip or Chew Tobacco: No; Hx Alcohol Use: No Hx Substance Use: No Preferred Language: Yemeni Communication Ability: Effective Communication Ability Comment: CAN READ BUT EYE ISSUES MAKE IT HARD [employer] Required: No Beliefs That Will Affect Care: None Current Living Situation: Parent Current Living Situation Comment: Mother Feels Safe at Home: Yes Assistive Devices: None Allergies Allergies Allergy/AdvReac Type Severity Reaction Status Date / Time No Known Allergies Allergy Verified 08/12/23 11:26 Home Meds Home Medications Medication Instructions Recorded Confirmed oxycodone 5 mg tablet 5 mg PO Q4 PRN Pain 08/12/23 08/12/23 Results & Data (ED) Vital Signs Vital Signs - 24 hr 08/12/23 09:10 08/12/23 09:16 08/12/23 10:37 Temperature 37 C Temperature Source Temporal Artery Scan Pulse Rate 112 H 105 H Respiratory Rate 17 Respiratory Effort / Characteristics Non-Labored Spontaneous Respiratory Depth Normal Blood Pressure 93/70 L Blood Pressure Mean 77 Blood Pressure Position Sitting Pulse Oximetry 82 L 90 Oxygen Delivery Method Room Air Oxymask Oxygen Flow Rate 6 Sepsis Recent Fever Within 48 Hours No Sepsis New/Unexplained Change in Mental Status No Sepsis Action Taken by Nursing No Action Required 08/12/23 11:00 08/12/23 11:01 08/12/23 11:30 Temperature Temperature Source Pulse Rate 102 H 100 H 93 H Respiratory Rate 24 12 20 Respiratory Effort / Characteristics Respiratory Depth Blood Pressure 117/91 118/87 Blood Pressure Mean 99 99 Blood Pressure Position Pulse Oximetry 95 95 94 Oxygen Delivery Method Oxymask Oxymask Oxygen Flow Rate 6 6 Sepsis Recent Fever Within 48 Hours Sepsis New/Unexplained Change in Mental Status Sepsis Action Taken by Nursing Laboratory Data 08/12/23 10:57 08/12/23 10:57 Lab Results 08/12/23 08/12/23 08/12/23 Range/Units 10:57 12:04 12:41 WBC 11.19 H (4.8-10.8) K/ul RBC 4.99 (4.70-6.10) M/uL Hgb 12.9 L (14.0-18.0) g/dl Hct 41.7 L (42.0-52.0) % MCV 83.6 (80.0-100.0) fL MCH 25.9 (25.0-34.0) pg MCHC 30.9 L (32.0-36.0) g/dL RDW Std Deviation 49.1 H (36.4-46.3) fL RDW Coeff of Roger 16.1 H (11.5-14.5) % Plt Count 355 (130-400) K/uL MPV 8.8 L (9.4-12.4) fL Immature Gran % (Auto) 0.6 % Neut % (Auto) 81.9 % Lymph % (Auto) 8.1 % [place] % (Auto) 9.1 % Eos % (Auto) 0.1 % Baso % (Auto) 0.2 % Neut # (Auto) 9.16 H (1.40-6.50) K/uL Lymph # (Auto) 0.91 L (1.20-3.40) K/uL [place] # (Auto) 1.02 H (0.11-0.59) K/uL Eos # (Auto) 0.01 (0.00-0.50) K/uL Baso # (Auto) 0.02 (0.00-0.20) K/uL Immature Gran # (Auto) 0.07 (0.01-0.20) K/uL Sodium 136 (136-145) mmol/L Potassium 4.1 (3.5-5.1) mmol/L Chloride 97 L (98-107) mmol/L Carbon Dioxide 29 (21-32) mmol/L Anion Gap 10 (3-11) BUN 10 (6-23) mg/dl Creatinine 0.62 (0.6-1.4) mg/dl Est Cr Clr Drug Dosing 125.9 ml/min Est GFR ( Amer) 127.6 ml/min Est GFR (Non-Af Amer) 110.1 ml/min BUN/Creatinine Ratio 16.1 (10-20) Glucose 103 H (70-99(Fasting)) mg/dl Lactate 1.1 (0.4-2.0) mmol/L Calcium 10.0 (8.6-10.3) mg/dl Total Bilirubin 0.6 (0.2-1.0) mg/dl AST 17 (13-39) U/L ALT 10 (7-52) U/L Alkaline Phosphatase 217 H (34-104) U/L Troponin I High Sens 13.4 (0-20) pg/ml Total Protein 7.8 (6.0-8.3) gm/dl Albumin 3.8 (3.4-5.0) gm/dl Globulin 4.0 (2.5-4.0) gm/dl Albumin/Globulin Ratio 1.0 (0.9-2) TSH 1.509 (0.300-4.500) uIu/ml SARS-CoV-2, RNA, NAAT NEGATIVE (NEGATIVE) Administered Medications Discontinued Medications Fentanyl Citrate (Fentanyl Citrate Pf 100 Mcg/2 Ml Vial) 50 mcg IV NOW STA Stop: 08/12/23 09:49 Last Admin: 08/12/23 10:56 Dose: 50 mcg Documented By: JACK Sodium Chloride (Nss) 500 mls @ 999 mls/hr IV .Q31M BONIFACIO Stop: 08/12/23 10:30 Last Infusion: 08/12/23 11:36 Dose: Infused Documented By: Admin: 08/12/23 10:56 Dose: 999 mls/hr Documented By: JACK Imaging Data Radiologist's Impression: Chest X-Ray 08/12/23 09:48 XR chest 1V not portable CLINICAL HISTORY: weakness, lung ca, hypoxia COMPARISON STUDY: Chest radiograph May 17, 2023. Chest CT July 06, 2023. FINDINGS: Right upper lobe mass is again noted. Right lung volume loss with elevation of the right hemidiaphragm has increased. No pneumothorax or pleural effusion is present. Multifocal right lung airspace opacities have progressed. Left lung is clear. No evidence for pulmonary edema. Cardiac size is normal. IMPRESSION: Redemonstration of the right upper lobe mass. Significant increase in right lung airspace opacities. This may reflect pneumonia or post radiation change in the appropriate clinical setting. However, postobstructive pneumonia/atelectasis given increase in volume loss could appear similar. ACT 112: Negative or not required by law. Electronically signed by: Zac Rivas M.D. 08/12/2023 10:35 AM Discharge Plan Visit Data Chief Complaint: Referred by Doctor Stated Complaint: REF BY DR SULLIVAN Provider: Brian Garcia Discharge Problem: Hypoxia, Neck pain, Metastatic carcinoma, Lung cancer, Failure to thrive in adult Patient Disposition: Being Evaluated by Hospitalist Forms Stand Alone Forms: My [employer] Prescriptions Prescriptions: No Action oxycodone 5 mg tablet 5 mg PO Q4 PRN (Reason: Pain) Referrals Referrals: Bhavesh Sutherland MD [Primary Care Provider] -
[2023-08-12] MEDS ORDERED: SODIUM CHLORIDE 0.9% 500 ML IV SCH (10:00)
--- NOTE | 2023-08-12 10:37 | XRay Report ---
XR chest 1V not portable CLINICAL HISTORY: weakness, lung ca, hypoxia COMPARISON STUDY: Chest radiograph May 17, 2023. Chest CT July 06, 2023. FINDINGS: Right upper lobe mass is again noted. Right lung volume loss with elevation of the right he midiaphragm has increased. No pneumothorax or pleural effusion is present. Multifocal right lung airs pace opacities have progressed. Left lung is clear. No evidence for pulmonary edema. Cardiac size is normal. IMPRESSION: Redemonstration of the right upper lobe mass. Significant increase in right lung airspac e opacities. This may reflect pneumonia or post radiation change in the appropriate clinical setting. However, postobstructive pneumonia/atelectasis given increase in volume loss could appear similar. ACT 112: Negative or not required by law. Electronically signed by: Zac Rivas M.D. 08/12/2023 10:35 AM
[2023-08-12 11:16] LABS: Basophils # (auto) 0.02 K/uL (0.00-0.20); Basophils % (auto) 0.2 %; Eosinophils # (auto) 0.01 K/uL (0.00-0.50); Eosinophils % (auto) 0.1 %; Hematocrit (blood only) 41.7 % (42.0-52.0); Hemoglobin 12.9 g/dl (14.0-18.0); Immature Granulocytes # (auto) 0.07 K/uL (0.01-0.20); Immature Granulocytes % (auto) 0.6 %; Lymphocytes # (auto) 0.91 K/uL (1.20-3.40); Lymphocytes % (auto) 8.1 %; Mean Corpuscular Hemoglobin 25.9 pg (25.0-34.0); Mean Corpuscular Hgb Conc 30.9 g/dL (32.0-36.0); Mean Corpuscular Volume 83.6 fL (80.0-100.0); Mean Platelet Volume 8.8 fL (9.4-12.4); Monocytes # (auto) 1.02 K/uL (0.11-0.59); Monocytes % (auto) 9.1 %; Neutrophils # (auto) 9.16 K/uL (1.40-6.50); Neutrophils % (auto) 81.9 %; Platelet Count 355 K/uL (130-400); RDW Coefficient of Variation 16.1 % (11.5-14.5); RDW Standard Deviation 49.1 fL (36.4-46.3); Red Blood Count 4.99 M/uL (4.70-6.10); White Blood Count 11.19 K/ul (4.8-10.8)
[2023-08-12 11:35] LABS: Albumin Level 3.8 gm/dl (3.4-5.0); BUN Creatinine Ratio 16.1 (10-20); Bilirubin,Total 0.6 mg/dl (0.2-1.0); Creatinine Clr Calc Pharmacy 125.9 ml/min; Est GFR (African American) 127.6 ml/min; Est GFR (Non-African American) 110.1 ml/min; Potassium 4.1 mmol/L (3.5-5.1); Total Protein 7.8 gm/dl (6.0-8.3)
[2023-08-12 11:41] LABS: Troponin I High Sensitivity 13.4 pg/ml (0-20)
[2023-08-12 11:50] LABS: Thyroid Stimulating Hormone 1.509 uIu/ml (0.300-4.500)
[2023-08-12] MEDS ORDERED: PIPERACILLIN/TAZOBACTAM 4.5 GM/100 ML BAG IV STA (12:43)
--- NOTE | 2023-08-12 13:20 | History & Physical Report ---
Date of Service August 12, 2023 Assessment & Plan (1) Metastatic carcinoma: (2) Lung cancer: (3) Hypoxia: Plan: Admit to [facility] Patient presenting by referral of pulmonary office for evaluation of metastatic lung carcinoma, evaluation by palliative care, and arrangement of home services. Patient recently diagnosed with metastatic lung carcinoma with metastases to the neck and adrenal gland. Patient was evaluated by oncology Dr. Lyn and was told this is an incurable disease. Patient was offered evaluation by radiation oncology for palliative treatment of neck mass. Currently patient is expressing wishes to remain a full code. In the ED, patient hypoxic on room air at 82%. Currently requiring 6 L OxyMask. CXR showing possible pneumonia. Patient is afebrile, WBC 11 K. Will check blood cultures, lactate, procalcitonin. Start IV Zosyn. Check MRSA nasal swab and if positive will add vancomycin Palliative care consult Radiation oncology consult (4) Tobacco use disorder: Plan: Nicotine patch DVT PROPHYLAXIS SQ heparin Patient seen in collaboration with Dr. Lowe. I spent a total of 60 minutes coordinating, documenting, and providing care for this patient excluding time spent in the performance of separately billed services. This included personally reviewing all current laboratories and imaging studies, medication reconciliation, outpatient chart review, and discussion with specialists. History of Present Illness Chief Complaint: Referred from pulmonary office Primary Care Provider: Bhavesh Sutherland MD 58-year-old male with PMH history of DVT s/p treatment, BPH, metastatic lung carcinoma to the neck and adrenal gland, and other problems listed below who presents to the ED by referral of the pulmonary office. Patient is a poor historian. History obtained from discussion with pulmonary Callum Ott PA-C and review of outpatient PCP, oncology, pulmonary records. Patient recently diagnosed with metastatic lung carcinoma. He was evaluated by oncology on 08/03 and was told this is an incurable disease. He was offered evaluation by radiation oncology for palliative treatment to the neck mass. Patient is very thin and cachectic appearing. He reports some neck pain but otherwise offers no complaints. Denies shortness of breath and chest pain. No lightheadedness or dizziness. Denies abdominal pain, nausea, vomiting, diarrhea. Reports he has lost some weight however is unsure how much. No urinary symptoms. In the ED, patient was hypoxic on room air at 82%, currently requiring 6 L OxyMask. Labs unremarkable. CXR shows redemonstration of the right upper lobe mass. Significant increase in right lung airspace opacities. This may reflect pneumonia or post radiation change in the appropriate clinical setting. However, postobstructive pneumonia/atelectasis given increase in volume loss could appear similar. Patient was given IVF and IV fentanyl. Allergies Allergy/AdvReac Type Severity Reaction Status Date / Time No Known Allergies Allergy Verified 08/12/23 11:26 Home Medications Medication Instructions Recorded Confirmed Type oxycodone 5 mg tablet 5 mg PO Q4 PRN Pain 08/12/23 08/12/23 History Past Med/Surg History Medical History Tobacco use disorder DVT (deep venous thrombosis) Surgical History Hx of right cataract extraction Family History Mother Family history of diabetes mellitus Social History Smoking Status: Current every day smoker Tobacco Type: Cigarettes Cigarettes Per Day: 20; Second Hand Exposure: No; Do You Dip or Chew Tobacco: No; Tobacco Cessation Education Requested by Patient: No Hx Alcohol Use: No Hx Substance Use: No Preferred Language: Nepalese Communication Ability: Impaired Communication Ability Comment: 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 Lowe's addendum for physical exam Results & Data Results & Data Vital Signs (Past 12 Hours) Vital Signs Temp Pulse Resp BP Pulse Ox O2 Del Method O2 Flow Rate 08/12/23 11:30 93 H 20 118/87 94 08/12/23 11:01 100 H 12 95 Oxymask 6 08/12/23 11:00 102 H 24 117/91 95 Oxymask 6 08/12/23 10:37 105 H 08/12/23 09:16 90 Oxymask 6 08/12/23 09:10 37 C 112 H 17 93/70 L 82 L Room Air Laboratory Results Short CBC 08/12/23 Range/Units 10:57 WBC 11.19 H (4.8-10.8) K/ul Hgb 12.9 L (14.0-18.0) g/dl Hct 41.7 L (42.0-52.0) % Plt Count 355 (130-400) K/uL BMP 08/12/23 10:57 Sodium 136 Potassium 4.1 Chloride 97 L Carbon Dioxide 29 BUN 10 Creatinine 0.62 Glucose 103 H Calcium 10.0 Liver Function 08/12/23 Range/Units 10:57 Total Bilirubin 0.6 (0.2-1.0) mg/dl AST 17 (13-39) U/L ALT 10 (7-52) U/L Alkaline Phosphatase 217 H (34-104) U/L Albumin 3.8 (3.4-5.0) gm/dl Diagnostic Findings Chest X-Ray 08/12/23 09:48 XR chest 1V not portable CLINICAL HISTORY: weakness, lung ca, hypoxia COMPARISON STUDY: Chest radiograph May 17, 2023. Chest CT July 06, 2023. FINDINGS: Right upper lobe mass is again noted. Right lung volume loss with elevation of the right hemidiaphragm has increased. No pneumothorax or pleural effusion is present. Multifocal right lung airspace opacities have progressed. Left lung is clear. No evidence for pulmonary edema. Cardiac size is normal. IMPRESSION: Redemonstration of the right upper lobe mass. Significant increase in right lung airspace opacities. This may reflect pneumonia or post radiation change in the appropriate clinical setting. However, postobstructive pneumonia/atelectasis given increase in volume loss could appear similar. ACT 112: Negative or not required by law. Electronically signed by: Zac Rivas M.D. 08/12/2023 10:35 AM Code Status & VTE Plan Code Status Patient expresses wishes to remain a full code as per Dr. Lowe's discussion with him. VTE Prophylaxis Plan VTE Prophylaxis will be ordered: Yes Supervising Physician Co-Signing Physician Notes Patient is a 58-year-old male with history of metastatic lung carcinoma, BPH, history of DVT, ongoing tobacco use disorder and other comorbidities presents on recommendations from pulmonary office today for possible palliative radiation therapy and pain control. Patient is a very poor historian. Most of the history is obtained from old records and ER staff. Patient admits to have some neck discomfort, weight loss, poor appetite. He denies any significant shortness of breath. Also reports cough but denies any fever, chills. He was noted to be hypoxic in the 80s on room air requiring supplemental oxygen to maintain saturation. Please review HPI for complete details of presentation. I personally reviewed blood work, imaging studies, EKG available at the time of admission. Physical Exam: Vitals signs as noted above General Appearance: Frail, cachexia, ill-appearing, no apparent distress Head: normocephalic, Atraumatic Eyes: normal inspection, EOMI Neck: supple, Trachea midline, + cervical adenopathy on right side Respiratory/Chest: B/L air entry, CTA, No accessory muscle use Cardiovascular: S1, S2, No murmur, +Tachycardia Abdomen/GI:Soft, Non tender, Bowel sounds present Extremities/Musculoskeletal:normal inspection, no edema Neurologic/Psych:AAOX2, grossly no focal neurological deficits Skin: normal color, warm Metastatic lung cancer Hypoxia Possible pneumonia Sinus tachycardia Hypotension on presentation Ongoing tobacco use disorder Blood cultures pending Empirically started on Zosyn Supplemental oxygen as needed Radiation oncology consulted for possible palliative radiation Palliative care consulted to address goals of care 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 Patient is interviewed and examined at bedside. Patient's care is coordinated with Cinthya Maurice EXPERIENCE PLANNING STRATEGIST. Please refer to the documentation above for details of patient's presentation and for discussion of other issues.
[2023-08-12] MEDS ORDERED: oxyCODONE HCL IR 5 MG TAB (IMMEDIATE RELEASE) PO PRN (14:49)
[2023-08-12] MEDS ORDERED: ACETAMINOPHEN 325 MG TAB PO PRN (14:49)
--- NOTE | 2023-08-12 15:47 | Electrocardiogram Report ---
Test Reason : Blood Pressure : / mmHG Vent. Rate : 104 BPM Atrial Rate : 104 BPM P-R Int : 232 ms QRS Dur : 118 ms QT Int : 334 ms P-R-T Axes : 057 -73 074 degrees QTc Int : 439 ms Sinus tachycardia with 1st degree A-V block Left axis deviation Incomplete right bundle branch block Minimal voltage criteria for LVH, may be normal variant Abnormal ECG When compared with ECG of 20-MAY-2023 01:45, Incomplete right bundle branch block is now Present Confirmed by Moo Peres ([id number]) on 08/12/2023 3:47:01 PM Referred By: Confirmed By:Vito Peres
--- NOTE | 2023-08-12 16:18 | Radiation OncologyConsultation ---
Date of Consultation August 12, 2023 Assessment & Plan (1) Lung cancer: Plan Assessment: Mr. Ramires is a 58-year-old gentleman who was recently diagnosed with metastatic lung cancer. The patient has been reluctant to pursue a proper work- up and evaluation. Ultimately, the patient did have a CT-guided biopsy of the right neck mass which was consistent with metastatic carcinoma. The patient has been seen by Dr. Lyn from medical oncology who recommended consideration of palliative radiation therapy to the right neck mass. Dr. Lyn has not recommended any systemic therapy at this point given the patient's overall performance status. The patient was scheduled for an outpatient consultation tomorrow in our department. The patient did present to the emergency room for further evaluation given his right neck pain. I have been asked to evaluate the patient during his potential admission. Discussion: I did offer the patient palliative external beam radiation therapy to the right neck mass. At this point, the patient is very reluctant to consider treatment. He expressed significant frustration overall with his pain. I tried to convince him that radiation therapy could be a potential reasonable option for treatment. He did continue to insist that he wanted the tumor removed from his neck surgically. I did explain to the patient that I think that this is an unlikely option for him given his overall performance function status and I also explained to him that we do not typically resect metastatic disease just for palliative symptoms. At this point, the patient declined any radiation therapy. The patient was overall frustrated and was already discussing leaving AGAINST MEDICAL ADVICE. Plan: 1. No radiation therapy at this point. This can be considered in the future. Please contact us if the patient shows interest in palliative radiation therapy for the right neck mass. 2. Pain control as per primary medical team and medical oncology. 3. Palliative care consultation in the outpatient or inpatient setting is warranted given the patient's poor prognosis. 4. Continue follow-up with medical oncology. 5. Patient and family encouraged to call us with any further questions or concerns. Rationale/Explanation of Treatment: I have explained the indications, alternatives, benefits, risks and side effects of radiation therapy. I have explained the most common side effects including but are not limited to skin erythema, skin break down, hair loss, fibrosis, adhesion development, heart failure and heart disease, esophagitis, esophageal stenosis, bowel obstruction, urinary symptoms, thyroid disorders, mucositis, nausea, vomiting, diarrhea, anemia, fatigue, carotid artery stenosis and development of secondary malignancy. Additionally, patients suffer may have xerostomia, stomatitis, glossitis, dysphagia, aspiration, mandibular osteoradionecrosis, mucocutaneous fistula formation, lymphedema in the neck, pharyngeal edema, mucositis, loss of taste. I have explained the CT simulation process and treatment planning. I explained what to expect before, during and after treatment on a regular basis. History of Present Illness Attending Physician: Jalil Lowe MD History of Present Illness 07/04/2022. Primary care visit (Dr. Pelayo). 15 pound weight loss in a year and a half. Recommendation for biopsy of skin lesion of face. 08/21/2022. Shave biopsy of face. Basal cell carcinoma. 09/18/2022. Dermatology consultation (Dr. De Guzman). Patient underwent Mohs procedure. This cleared in 2 stages. 05/17/2023. Emergency room evaluation. Abdominal pain, pneumonia, cavitary mass of the lung. 05/18/2023. Pulmonary consultation (Dr. Boyle). Recommendation for interventional radiology for biopsy of adrenal gland or liver. 05/18/2023. Neurology consultation. Hydrocephalus. Recommendation for MRIs of the cervical, thoracic, and lumbar spine. Patient refused further work-up. 05/18/2023. Emergency room evaluation for hypoxemia. Abdominal pain. 05/18/2023. MRI of the brain. No evidence of acute intracranial pathology. 05/20/2023. CTA of the chest. 1. No CT evidence of pulmonary embolism. 2. 2.8 cm right hilar mass/adenopathy causing moderate compression of the distal main right pulmonary artery with associated partial volume loss of the right upper lobe. 3. 4.9 cm mass with areas of necrosis in the lateral right apical lung. 4. Areas of nodular consolidation within the remaining anterior right upper lobe. 05/20/2022. Diagnostic ultrasound. Core biopsy of liver. 05/20/2022. Liver biopsy was benign. 05/21/2023. CT for biopsy of adrenal lesion. Patient declined biopsy. 06/25/2023. Primary care follow-up. Pulmonary is attempting to get a PET/CT scheduled. 07/06/2023. Chest CT. 1. Mild increase in size of a 5.9 x 4.9 cm right upper lobe mass since chest CT of May 20, 2023. This is highly suggestive of bronchogenic carcinoma. 2. Right hilar and adjacent mediastinal lymphadenopathy suspicious for sylvie spread of disease. Severe narrowing of the right upper lobe bronchus. 3. Moderate multifocal right upper lobe opacities, slightly decreased since prior chest CT. These favor postobstructive pneumonia however satellite lesions could appear similar. 4. 5.2 x 4.6 left adrenal mass, mildly increased in size since CT of May 17, 2023. This is neoplastic and highly suggestive of metastatic disease. A much less likely consideration is a primary left adrenal lesion such as adrenoc ortical carcinoma. 07/09/2023. Emergency room evaluation for right neck pain and low back pain. 07/09/2023. CT of the soft tissues of the neck. 1. Peripherally enhancing 3.2 cm intramuscular lesion within the right neck is indeterminate and may be metastatic considering the patient's known right lung mass. 2. No pathologically enlarged lymph nodes identified. 3. Pulmonary emphysema. 07/20/2023. Pulmonary follow-up. Patient plans to proceed with bronchoscopy with biopsies. PET/CT would not be approved until positive cancer diagnosis. 07/23/2023. Ultrasound-guided right posterior neck mass core biopsy. Path report reveals: Neck, right posterior, ultrasound-guided core biopsy: Metastatic poorly differentiated carcinoma. 08/03/2023. Medical oncology consultation (Dr. Lyn). Patient is having pain from a large mass of his neck. He is referred for palliative radiation therapy. Dr. Lyn will be scheduling a PET/CT and an MRI of the brain. Allergies Allergy/AdvReac Type Severity Reaction Status Date / Time No Known Allergies Allergy Verified 08/12/23 11:26 Home Medications Medication Instructions Recorded Confirmed Type oxycodone 5 mg tablet 5 mg PO Q4 PRN Pain 08/12/23 08/12/23 History Patient History Medical History Tobacco use disorder DVT (deep venous thrombosis) Surgical History Hx of right cataract extraction Family History Mother Family history of diabetes mellitus Social History Smoking Status: Current every day smoker Tobacco Type: Cigarettes Cigarettes Per Day: 20; Second Hand Exposure: No; Do You Dip or Chew Tobacco: No; Hx Alcohol Use: No Hx Substance Use: No Preferred Language: Yakut Communication Ability: Effective Communication Ability Comment: CAN READ BUT 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 Neck metastasis. Treatment: None so far. Review of Systems Review of Systems: Pain involving right neck. Physical Exam Constitutional: + ill appearing, + thin and + cachectic Neck: Palpable firm fixed right posterior neck mass. No skin ulceration. Tender to palpation. Time Spent Attending I spent 25 minutes in preparation for this consultation including reviewing all the clinical records, reviewing laboratory studies, pathology reports and imaging results. I spent 25 minutes with direct face to face interaction with the patient and/or family including performing a physical exam and answering all questions. I spent 25 minutes documenting this patient's visit. PG Care Time/CCT Total # of Minutes Spent Total Time Spent with Patient: Total time spent is greater than 50% in coordination of care (as documented) at patient's floor/unit and/or counseling patient: Coding Level of Care Code 64033 IN/OBS CONSULT LVL 4,60M Diagnoses Lung cancer C34.90
[2023-08-12] MEDS ORDERED: LACTATED RINGER'S 1,000 ML IV ONE (16:32)
[2023-08-12] MEDS: NICOTINE 21 MG/24 HR TDSY TD SCH (17:10)
[2023-08-12] MEDS ORDERED: PIPERACILLIN/TAZOBACTAM 4.5 GM in DEXTROSE 5% MINI-B 100 ML IV SCH (18:00)
--- NOTE | 2023-08-12 19:57 | Communication Note ---
Date of Service: August 12, 2023 Message received from RN that patient is hypoxic requiring increased supplemental oxygen. Coarse breath sounds noted by RN. Will hold IV fluids. Will check chest x-ray, ABG. Will transfer to PCU for close monitoring until goals of care addressed. Nebs ordered as needed. Will consider further management based on CXR, ABG.
[2023-08-12] MEDS ORDERED: LEVALBUTEROL 1.25 MG/3 ML NEB NEB STA (20:06)
[2023-08-12] MEDS ORDERED: IPRATROPIUM BROMIDE NEB SOLN 0.02% 2.5 ML VIAL INH STA (20:06)
[2023-08-12] MEDS ORDERED: XOPENEX/ATROVENT 1.25mg/0.5MG NEB COMBO NEB STA (20:06)
[2023-08-12] MEDS: LEVALBUTEROL HCL 0.63 MG/3 ML NEB NEB PRN ×2 (20:10→23:07)
[2023-08-12] MEDS ORDERED: methylPREDNISolone 20 MG in SYRINGE 0 ML IV STA (20:12)
[2023-08-12 20:35] LABS: Magnesium 2.2 mg/dl (1.7-2.4)
[2023-08-12 20:41] LABS: iSTAT Arterial Blood Gas HCO3 26 meg/L (19-24); iSTAT Arterial Blood Gas pCO2 43 mmHg (35-46); iSTAT Arterial Blood Gas pH 7.38 (7.35-7.45); iSTAT Arterial Blood Gas pO2 < 32 mmHg (80-95); iSTAT Carbon Dioxide 27 mmol/L (24-31); iSTAT Hematocrit 39 % (42-52); iSTAT Hemoglobin 13.3 g/dl (14.0-18.0); iSTAT Potassium 3.7 mmol/L (3.3-5.0); iSTAT Sodium 135 mmol/L (135-144)
--- NOTE | 2023-08-12 20:49 | Communication Note ---
Date of Service: August 12, 2023 Made aware by RN of persistent respiratory distress upon arrival at PCU for hypoxemia around 9 PM. Patient complaining of substernal pain and nausea. O2 sats 80s. Patient refusing to wear BiPAP ordered by admitting provider. Chest x-ray as per my interpretation : Consolidation, increased atelectasis right lower lobe Ap Worsening hypoxemic respiratory failure Possible exacerbation of undiagnosed COPD (obstructive outpatient PFTs noted) secondary to postobstructive pneumonia Rule out PE given chest pain complaints and past history DVT as per records ICU transfer given patient BiPAP intolerance (Patient counseled regarding potential intubation to facilitate mechanical ventilation given BiPAP noncompliance in light of worsening oxygenation.) Solu-Medrol Nebs RTC Continue Zosyn CT chest PE study once oxygenation stable Patient mother updated of developments over the phone.
[2023-08-12] MEDS ORDERED: HEPARIN SOD 5,000 UNIT/0.5 ML VIAL SQ SCH (21:00)
[2023-08-12] MEDS ORDERED: PROMETHAZINE HCL 6.25 MG in SODIUM CHLORIDE 0.9% 50 ML IV PRN (21:12)
[2023-08-12] MEDS ORDERED: PROMETHAZINE HCL 6.25 MG in SODIUM CHLORIDE 0.9% 50 ML IV STA (21:12)
[2023-08-12] MEDS ORDERED: KETOROLAC TROMETHAMINE 15 MG/ML VIAL IV ONE (21:15)
[2023-08-12] MEDS ORDERED: ALBUMIN 25% 25 GM/100 ML VIAL IV ONE (21:17)
[2023-08-12] MEDS ORDERED: methylPREDNISolone 20 MG in SYRINGE 0 ML IV ONE (21:30)
[2023-08-12] MEDS ORDERED: OPTIRAY 320 125ml IV ONE (22:21)
--- NOTE | 2023-08-12 22:36 | CT Scan Report ---
Exam(s): CTA CHEST IV Amt: 119 ml optiray 320 EXAM: CT Angiography Chest With Intravenous Contrast CLINICAL HISTORY: Reason for exam: cp, sob. TECHNIQUE: Axial computed tomographic angiography images of the chest with intravenous contrast. CTDI is 54.14 mGy and DLP is 577.81 mGy-cm. Automated exposure control was utilized for the study. A dose lowering technique was utilized adhering to the principles of ALARA. MIP reconstructed images were created and reviewed. COMPARISON: No relevant prior studies available. FINDINGS: Pulmonary arteries: Unremarkable. No acute pulmonary embolism. Aorta: Atherosclerotic changes of the aorta. No thoracic aortic aneurysm. Lungs: Cavitary mass in the RIGHT upper lobe measures 6.5 x 5.0 cm, concerning for pulmonary abscess versus cavitating squamous cell carcinoma. Correlate with medical history. Extensive aspiration of the RIGHT lower lobe with extensive debris in the RIGHT mainstem bronchus, contributing to near complete consolidation of the RIGHT lower lobe. Mild aspiration in the LEFT lung base. Pleural space: Unremarkable. No significant effusion. No pneumothorax. Heart: Unremarkable. No cardiomegaly. No significant pericardial effusion. No evidence of RV dysfunction. Bones/joints: Degenerative changes of the spine. No acute fracture. No dislocation. Soft tissues: Unremarkable. Lymph nodes: Unremarkable. No enlarged lymph nodes. IMPRESSION: 1. No acute pulmonary embolism. 2. Cavitary mass in the RIGHT upper lobe measures 6.5 x 5.0 cm, concerning for pulmonary abscess versus cavitating squamous cell carcinoma. Correlate with medical history. Note, there is narrowing of the RIGHT main pulmonary artery at this mass. 3. EXTENSIVE ASPIRATION of the RIGHT lower lobe with extensive debris in the RIGHT mainstem bronchus, contributing to near complete consolidation of the RIGHT lower lobe. Electronically signed by: Brady Clinton MD 08/12/23 22:35 PM
--- NOTE | 2023-08-12 22:46 | Critical Care Consultation ---
Date of Consultation August 12, 2023 Assessment & Plan (1) Aspiration into airway: (2) Hypoxic respiratory failure: (3) Lung cancer: (4) Metastatic carcinoma: (5) Failure to thrive in adult: (6) Cachexia: Plan Reason Critically Ill: 58 YOM with reported untreatable RUL metastatic cancer. Admitted to hospital for hypoxia and failure to thrive. Now to ICU with hypoxia in setting of likley combination of aspiration and post obstructive pneumonia. 2330- Mother has been at bedside since 2300- she had time to spend with Crescencio. Crescencio was able to wake up and talk as well as verbalize he was in the hospital, as well as verbalize that he knew he was dying. He and his mom both verbalized that he would like to take the BiPAP off and focus on comfort to allow him to peacefully. He declined nasogastric tube to prevent further aspiration and manage nausea, he declines continuing to wear BiPAP and does not want further therapy/treatments to include nebulizers, antibiotics, or intubation with mechanical ventilation. He stated yes that he understood that taking BiPAP mask off and not treating anything currently, that he would , when asked if he was wanted to proceed now he shook his head yes. Again mother is at bedside and ech oes this current plan. Patient will be converted to providing comfort care measures. Neuro - Lethargic CAM ICU: - Likely in the setting of hypoxia - He is moving all extremities and deflectable but remains answering questions unclear Cardiac - No acute needs at this time - he has a very high risk of cardiac arrest in setting of hypoxia Respiratory - Hypoxic respiratory failure, metastatic cavitary lung cancer of RUL, Aspiration pneumonia, post-obstructive pneumonia, COPD, Current smoker with nicotene dependance - Acute hypoxic respiratory failure in the setting of underlying un-treatable metastatic lung cancer- now complicated by failure to thrive, aspiration pneumonia as well as likely post-obstructive pneumonia - CTA of the chest obtained upon transfer to ICU- No PE - however the there is narrowing of his right pulmonary artery which is also likely adversely effecting his V/Q - BiPAP for now with hypertonic saline to attempt to clear out airways - As above it is very unlikely that he would be able to come off the ventilator in his current state if he were to be intubated - he is also likely to aspirate further as well- awaiting mother to arrive to the hospital to decide - Patient with likely undiagnosed COPD with overinflation of lungs noted on imaging and history of smoking - This is likely not playing a role at this time, however oxygenation goal will remain 88-92% - Patient reportedly continues to smoke- nicotine patch GI - Aspiration, failure to thrive - likely with distended stomach from tachypnea and gasping respirations - BiPAP would increase his risk of aspiration and if we are going to continue therapy - would place NGT to decompress stomach - reportedly not eating over the past few days and did not eat at all today- provide thiamine if full support is pursued RENAL/LYTES - No acute needs at this time - check PO4 - No acute needs ENDO - No acute needs HEME - No acute needs ID - Aspiration/postobstructive pneumonia - Continue with Zosyn LINES/IV ACCESS - PIV, Zhu if warranted Continue use of these lines DVT PROPHYLAXIS - SCDS, Heparin 5000 units subq DISPO: ICU until goals of care are obtained- I have personally spent 65 minutes of critical care time in the direct management of this patient. This is a life/limb threatening event. This includes time spent evaluating patient, direct bedside care, chart review, placing orders, interpretation of diagnostic studies, discussion with consultants, patient, and family members, as well as other required patient management activities. This time is exclusive of all separately billable procedures, and teaching time and separate from and in addition to any other critical care service time. Thank you for allowing us to participate in the care of this patient. Please refer to my attending physician's documentation for any further recommendations. History of Present Illness Reason for Consultation: Hypoxic respiratory failure Requesting Physician: Gurvinder Ware MD Attending Physician: Jalil Lowe MD History of Present Illness 58 YOM with metastatic lung cancer, that is described as incurable by his medical oncologist. Appears as he has been refusing treatment options to include bronchoscopy, in the past as well as palliative radiation that was offered today on admission. ICU was contacted for progressive hypoxia in the setting of what appears on admission diagnosis of either post obstructive pneumonia and/or aspiration pneumonia. He was refusing BiPAP on the Telemetry floor, and reportedly still wants to remain a full code. The patient is hypoxic in the mid 80s on 100% HFNC with NRB over top for supplementation. He is lethargic and unable to remain awake to answer questions thoroughly for me to say that he understands his current situation. He is currently on BiPAP with increase in his SPo2 with Fio2 100%. He had a CTA of his chest completed prior to arrival to the ICU. He is noted with aspiration with occlusion of the RLL and debris in airway, noted distended stomach as well. Unfortunately this pat ient is very unlikely to be able to be weaned off the ventilator if he were to be intubated not only because of his pulmonary disease, he is also very malnourished with likely inability to support his current metabolic demands. I have discussed the case with his mother and have re-iterated to her that intubating him and placing him on the ventilator will be able to provide increased support and oxygen, but we are not able to change his underlying diagnosis of metastatic lung cancer, and being able to remove him from the ventilatory is unlikely. The patient is also requiring very high FIO2 making bronchoscopy at this time very risky. We will try to maintain him on BiPAP at this time and attempt to place NGT to decompress his stomach. Add hypertonic nebulizer to assist with coughing and expectoration of secretions. ABG is currently with 7.43,37, 63, 24 on BiPAP 16/10 with FIo2 .60. CODE: FULL Allergies Allergy/AdvReac Type Severity Reaction Status Date / Time No Known Allergies Allergy Verified 08/12/23 11:26 Home Medications Medication Instructions Recorded Confirmed Type oxycodone 5 mg tablet 5 mg PO Q4 PRN Pain 08/12/23 08/12/23 History Patient History Medical History Tobacco use disorder DVT (deep venous thrombosis) Surgical History Hx of right cataract extraction Family History Mother Family history of diabetes mellitus Social History Smoking Status: Current every day smoker Tobacco Type: Cigarettes Cigarettes Per Day: 20; Second Hand Exposure: No; Do You Dip or Chew Tobacco: No; Hx Alcohol Use: No Hx Substance Use: No Preferred Language: Turkish Communication Ability: Impaired Communication Ability Comment: Eye problem makes reading hard Research Test Engine Evaluator Required: No Beliefs That Will Affect Care: None Current Living Situation: Parent Current Living Situation Comment: Mother Feels Safe at Home: Yes Assistive Devices: None Review of Systems Review of Systems: unable to perform secondary to lethargy Physical Exam Physical Exam: PHYSICAL EXAM: General: awakens to voice falls back to sleep, very cachetic, tachypneic ENT: PERRL, mucous membranes dry Neuro: AAO x 2, speech confused difficult to understand, strength intact bilaterally 5/5, able to move around to sit up in bed Chest: equal rise and fall of the chest, accessory muscle use, decreased movement on left with expiratory wheeze, left side inspiratory wheeze Cardiac: Regular rate and rhythm, telemetry reviewed- NSR, skin warm dry, cap refill <3 seconds, peripheral pulses +2 no JVD, no murmur, GI: NABS x 4 quadrants, soft, nontender to palpation, distended : Spontaneously voiding, no pain, no CVA tenderness, Skin: no rash or erythema Results & Data Results & Data Vital Signs (Past 12 Hours) Vital Signs Temp Pulse Pulse Pulse Resp BP BP 08/12/23 22:00 122 H 27 H 08/12/23 21:50 124 H 25 H 08/12/23 21:48 107/79 08/12/23 21:48 125 H 27 H 08/12/23 21:46 121 H 26 H 08/12/23 21:40 123 H 25 H 08/12/23 21:37 92/74 L 08/12/23 21:37 123 H 26 H 08/12/23 21:30 126 H 32 H 08/12/23 21:20 126 H 22 08/12/23 21:10 107/37 L 08/12/23 21:10 128 H 19 08/12/23 21:10 125 H 28 H 08/12/23 20:45 128 H 30 H 08/12/23 20:19 120 H 08/12/23 20:11 126 H 32 H 08/12/23 20:11 126 H 32 H 08/12/23 20:00 37.2 C 125 H 131/90 08/12/23 19:20 26 H 08/12/23 18:20 08/12/23 18:20 37.7 C H 114 H 20 100/70 08/12/23 17:50 08/12/23 17:40 25 H 08/12/23 17:30 30 H 08/12/23 17:20 22 08/12/23 17:10 27 H 08/12/23 17:00 113 H 25 H 08/12/23 16:50 119 H 27 H 08/12/23 16:40 109 H 22 08/12/23 16:30 112/82 08/12/23 16:30 110 H 23 08/12/23 16:20 26 H 08/12/23 16:10 114 H 26 H 08/12/23 16:00 107/87 08/12/23 16:00 116 H 28 H 08/12/23 15:50 29 H 08/12/23 15:40 127 H 28 H 08/12/23 15:40 36.6 C 68 20 08/12/23 15:30 105 H 23 08/12/23 15:30 113/91 08/12/23 15:20 106 H 24 08/12/23 15:17 106 H 20 120/96 08/12/23 15:10 110 H 25 H 08/12/23 15:00 120/96 08/12/23 15:00 102 H 20 08/12/23 14:50 100 H 22 08/12/23 14:40 104 H 24 08/12/23 14:39 103 H 08/12/23 14:30 113 H 23 129/89 08/12/23 13:00 100 H 20 102/71 08/12/23 12:30 100 H 24 120/91 08/12/23 12:00 94 H 19 130/94 08/12/23 11:30 93 H 20 118/87 08/12/23 11:01 100 H 12 08/12/23 11:00 102 H 24 117/91 Pulse Ox O2 Del Method O2 Flow Rate FiO2 08/12/23 22:00 85 L 08/12/23 21:50 08/12/23 21:48 08/12/23 21:48 78 L 08/12/23 21:46 85 L 08/12/23 21:40 95 08/12/23 21:37 08/12/23 21:37 96 08/12/23 21:30 96 08/12/23 21:20 94 08/12/23 21:10 08/12/23 21:10 81 L 08/12/23 21:10 94 40 100 08/12/23 20:45 94 BiPAP 08/12/23 20:19 88 L 08/12/23 20:11 75 L 100 08/12/23 20:11 75 L BiPAP 100 08/12/23 20:00 75 L BiPAP 08/12/23 19:20 75 L Non-rebreather 15 08/12/23 18:20 Oxymask 3 08/12/23 18:20 93 Oxymask 3 08/12/23 17:50 93 08/12/23 17:40 08/12/23 17:30 08/12/23 17:20 08/12/23 17:10 97 08/12/23 17:00 96 08/12/23 16:50 08/12/23 16:40 08/12/23 16:30 08/12/23 16:30 08/12/23 16:20 08/12/23 16:10 08/12/23 16:00 08/12/23 16:00 08/12/23 15:50 08/12/23 15:40 08/12/23 15:40 96 Room Air 08/12/23 15:30 98 08/12/23 15:30 08/12/23 15:20 99 08/12/23 15:17 96 Room Air 08/12/23 15:10 08/12/23 15:00 08/12/23 15:00 08/12/23 14:50 08/12/23 14:40 08/12/23 14:39 08/12/23 14:30 96 Oxymask 08/12/23 13:00 96 Oxymask 08/12/23 12:30 96 Oxymask 08/12/23 12:00 93 Oxymask 6 08/12/23 11:30 94 08/12/23 11:01 95 Oxymask 6 08/12/23 11:00 95 Oxymask 6 Laboratory Results Abnormal lab results 08/12/23 08/12/23 Range/Units 10:57 20:16 WBC 11.19 H (4.8-10.8) K/ul Hgb 12.9 L (14.0-18.0) g/dl POC Hgb 13.3 L (14.0-18.0) g/dl Hct 41.7 L (42.0-52.0) % POC Hct 39 L (42-52) % MCHC 30.9 L (32.0-36.0) g/dL RDW Std Deviation 49.1 H (36.4-46.3) fL RDW Coeff of Roger 16.1 H (11.5-14.5) % MPV 8.8 L (9.4-12.4) fL Neut # (Auto) 9.16 H (1.40-6.50) K/uL Lymph # (Auto) 0.91 L (1.20-3.40) K/uL Parmer # (Auto) 1.02 H (0.11-0.59) K/uL POC pO2 < 32 L (80-95) mmHg POC HCO3 26 H (19-24) wendi/L POC ABG O2 Sat 61.0 L (90-95) % Chloride 97 L (98-107) mmol/L Glucose 103 H (70-99(Fasting)) mg/dl Alkaline Phosphatase 217 H (34-104) U/L Diagnostic Findings Chest X-Ray 08/12/23 09:48 XR chest 1V not portable CLINICAL HISTORY: weakness, lung ca, hypoxia COMPARISON STUDY: Chest radiograph May 17, 2023. Chest CT July 06, 2023. FINDINGS: Right upper lobe mass is again noted. Right lung volume loss with elevation of the right hemidiaphragm has increased. No pneumothorax or pleural effusion is present. Multifocal right lung airspace opacities have progressed. Left lung is clear. No evidence for pulmonary edema. Cardiac size is normal. IMPRESSION: Redemonstration of the right upper lobe mass. Significant increase in right lung airspace opacities. This may reflect pneumonia or post radiation change in the appropriate clinical setting. However, postobstructive pneumonia/atelectasis given increase in volume loss could appear similar. ACT 112: Negative or not required by law. Electronically signed by: Zac Rivas M.D. 08/12/2023 10:35 AM Chest CTA 08/12/23 21:50 Exam(s): CTA CHEST IV Amt: 119 ml optiray 320 EXAM: CT Angiography Chest With Intravenous Contrast CLINICAL HISTORY: Reason for exam: cp, sob. TECHNIQUE: Axial computed tomographic angiography images of the chest with intravenous contrast. CTDI is 54.14 mGy and DLP is 577.81 mGy-cm. Automated exposure control was utilized for the study. A dose lowering technique was utilized adhering to the principles of ALARA. MIP reconstructed images were created and reviewed. COMPARISON: No relevant prior studies available. FINDINGS: Pulmonary arteries: Unremarkable. No acute pulmonary embolism. Aorta: Atherosclerotic changes of the aorta. No thoracic aortic aneurysm. Lungs: Cavitary mass in the RIGHT upper lobe measures 6.5 x 5.0 cm, concerning for pulmonary abscess versus cavitating squamous cell carcinoma. Correlate with medical history. Extensive aspiration of the RIGHT lower lobe with extensive debris in the RIGHT mainstem bronchus, contributing to near complete consolidation of the RIGHT lower lobe. Mild aspiration in the LEFT lung base. Pleural space: Unremarkable. No significant effusion. No pneumothorax. Heart: Unremarkable. No cardiomegaly. No significant pericardial effusion. No evidence of RV dysfunction. Bones/joints: Degenerative changes of the spine. No acute fracture. No dislocation. Soft tissues: Unremarkable. Lymph nodes: Unremarkable. No enlarged lymph nodes. IMPRESSION: 1. No acute pulmonary embolism. 2. Cavitary mass in the RIGHT upper lobe measures 6.5 x 5.0 cm, concerning for pulmonary abscess versus cavitating squamous cell carcinoma. Correlate with medical history. Note, there is narrowing of the RIGHT main pulmonary artery at this mass. 3. EXTENSIVE ASPIRATION of the RIGHT lower lobe with extensive debris in the RIGHT mainstem bronchus, contributing to near complete consolidation of the RIGHT lower lobe. Electronically signed by: Brady Clinton MD 08/12/23 22:35 PM Medications Administered Heparin Sodium (Porcine) (Heparin Sod 5,000 Unit/0.5 Ml Vial) 5,000 units SQ Q12 [facility]ON[facility]ACIO Stop: 09/11/23 20:59 Last Admin: 08/12/23 20:39 Dose: 5,000 units Documented By: VANGIE Piperacillin Sod/Tazobactam (Sod 4.5 gm/ Dextrose) 100 mls @ 25 mls/hr IV Q8H [facility]; Protocol Stop: 08/19/23 17:59 Last Admin: 08/12/23 18:46 Dose: 25 mls/hr Documented By: DANE Albumin Human (Albumin 25%) 25 gm in 100 mls @ 50 mls/hr IV ONE ONE Stop: 08/12/23 23:16 Last Admin: 08/12/23 21:29 Dose: 50 mls/hr Documented By: FLORINDA Levalbuterol HCl (Levalbuterol Hcl 0.63 Mg/3 Ml Neb) 0.63 mg NEB Q6R PRN; Protocol PRN Reason: Shortness Of Breath Or Wheezing Stop: 09/11/23 18:59 Last Admin: 08/12/23 20:10 Dose: 0.63 mg Documented By: DAMIR Miscellaneous (Remove Nicoderm Patch) 1 each N/A DAILY@1659 [facility] Stop: 09/11/23 16:58 Last Admin: 08/12/23 17:41 Dose: Not Given Documented By: DANE Nicotine (Nicotine 21 Mg/24 Hr Tdsy) 21 mg TD DAILY@1700 [facility] Stop: 09/11/23 16:59 Last Admin: 08/12/23 17:10 Dose: 21 mg Documented By: KAREEM Discontinued Medications Fentanyl Citrate (Fentanyl Citrate Pf 100 Mcg/2 Ml Vial) 50 mcg IV NOW STA Stop: 08/12/23 09:49 Last Admin: 08/12/23 10:56 Dose: 50 mcg Documented By: JACK Sodium Chloride (Nss) 500 mls @ 999 mls/hr IV .Q31M [facility]IO Stop: 08/12/23 10:30 Last Infusion: 08/12/23 11:36 Dose: Infused Documented By: Admin: 08/12/23 10:56 Dose: 999 mls/hr Documented By: JACK Piperacillin Sod/Tazobactam Sod (Zosyn) 4.5 gm in 100 mls @ 200 mls/hr IV ONE STA Stop: 08/12/23 13:12 Last Infusion: 08/12/23 14:23 Dose: Infused Documented By: Admin: 08/12/23 13:12 Dose: 200 mls/hr Documented By: JACK Lactated Ringer's (Lr) 1,000 mls @ 60 mls/hr IV .[id number] ONE Stop: 08/13/23 09:11 Last Infusion: 08/12/23 19:55 Dose: Infused Documented By: Admin: 08/12/23 17:05 Dose: 60 mls/hr Documented By: KAREEM Methylprednisolone 20 mg/ (Syringe) 0.32 mls @ 1.5 mls/min IV NOW STA Stop: 08/12/23 20:13 Last Admin: 08/12/23 20:39 Dose: 1.5 mls/min Documented By: VANGIE Promethazine HCl 6.25 mg/ (Sodium Chloride) 50.25 mls @ 201 mls/hr IV NOW STA Stop: 08/12/23 21:26 Last Infusion: 08/12/23 21:45 Dose: Infused Documented By: Admin: 08/12/23 21:20 Dose: 201 mls/hr Documented By: FLORINDA Methylprednisolone 20 mg/ (Syringe) 0.32 mls @ 1.5 mls/min IV NOW ONE Stop: 08/12/23 21:31 Last Admin: 08/12/23 21:29 Dose: 1.5 mls/min Documented By: FLORINDA Ioversol (Optiray 320 125ml) 119 ml IV ONCE ONE Stop: 08/12/23 22:22 Last Admin: 08/12/23 22:22 Dose: 119 ml Documented By: EVA Ipratropium [place] (Ipratropium [place] Neb Soln 0.02% 2.5 Ml Vial) 0.5 mg INH NOW STA Stop: 08/12/23 20:07 Last Admin: 08/12/23 20:14 Dose: Not Given Documented By: DAMIR Ketorolac Tromethamine (Ketorolac Tromethamine 15 Mg/Ml Vial) 15 mg IV NOW ONE Stop: 08/12/23 21:16 Last Admin: 08/12/23 21:28 Dose: 15 mg Documented By: FLORINDA Levalbuterol HCl (Levalbuterol 1.25 Mg/3 Ml Neb) 1.25 mg NEB NOW STA Stop: 08/12/23 20:07 Last Admin: 08/12/23 20:14 Dose: Not Given Documented By: DAMIR Coding Level of Care Code 71529 CRITICAL CARE 1ST 30-74M Diagnoses Aspiration into airway T17.908A Hypoxic respiratory failure J96.91 Lung cancer C34.90 Metastatic carcinoma C79.9 Failure to thrive in adult R62.7 Cachexia R64
[2023-08-12] MEDS ORDERED: METOCLOPRAMIDE HCL INJ 5 MG/ML 2 ML VIAL IV ONE (22:54)
[2023-08-12] MEDS ORDERED: SODIUM CHLOR 7% 4 ML NEB ONE (23:01)
[2023-08-12 23:04] LABS: iSTAT Allen Test Pass; iSTAT Art Bld Gas pCO2 Correct 38 mmHg (35-46); iSTAT Art Bld Gas pH Corrected 7.427 (7.35-7.45); iSTAT Arterial Blood Gas HCO3 25 meg/L (19-24); iSTAT Arterial Blood Gas pCO2 38 mmHg (35-46); iSTAT Arterial Blood Gas pH 7.43 (7.35-7.45); iSTAT Arterial Blood Gas pO2 63 mmHg (80-95); iSTAT Arterial Blood Gas pO2 C 64; iSTAT Carbon Dioxide 26 mmol/L (24-31); iSTAT FiO2 60 %; iSTAT Hematocrit 35 % (42-52); iSTAT Hemoglobin 11.9 g/dl (14.0-18.0); iSTAT Potassium 3.4 mmol/L (3.3-5.0); iSTAT Site L Radial; iSTAT Sodium 132 mmol/L (135-144)
[2023-08-12] MEDS ORDERED: ONDANSETRON INJ 2 MG/ML 2 ML VIAL IV PRN (23:38)
[2023-08-12] MEDS ORDERED: PROMETHAZINE HCL 12.5 MG in SODIUM CHLORIDE 0.9% 50 ML IV PRN (23:38)
[2023-08-12] MEDS ORDERED: MoRPHine SULFATE 10 MG/0.5 ML UDP PO PRN (23:38)
[2023-08-12] MEDS ORDERED: LORazepam 0.5 MG TAB PO PRN (23:38)
[2023-08-13] MEDS: LORazepam 0.5 MG in SYRINGE 0.25 ML IV SCH ×3 (00:07→15:50)
[2023-08-13] MEDS: MoRPHine SULFATE 2 MG/ML CARP IV PRN ×2 (00:07→03:27)
[2023-08-13] MEDS ORDERED: IPRATROPIUM BROMIDE NEB SOLN 0.02% 2.5 ML VIAL INH SCH (01:00)
[2023-08-13] MEDS ORDERED: XOPENEX/ATROVENT 1.25mg/0.5MG NEB COMBO NEB SCH (01:00)
[2023-08-13] MEDS ORDERED: LEVALBUTEROL 1.25 MG/3 ML NEB NEB SCH (01:00)
[2023-08-13] MEDS: LORazepam 0.5 MG in SYRINGE 0.25 ML IV PRN ×2 (03:27→20:11)
[2023-08-13] MEDS ORDERED: SODIUM CHLOR 7% 4 ML NEB NEB SCH (07:00)
[2023-08-13] MEDS ORDERED: ICU Protocol for HYPERglycemia SCH (07:30)
--- NOTE | 2023-08-13 07:43 | XRay Report ---
SINGLE VIEW CHEST CLINICAL HISTORY: Hypoxia. FINDINGS: 2 AP, portable, upright chest radiographs are compared to study dated 08/12/2023 and correl ated with chest CT dated 07/06/2023. The cardiomediastinal silhouette is unremarkable. Emphysema and chronic interstitial thickening is similar to previous. There is a moderate right pleural effusion wi th right basilar consolidation. Moderate patchy airspace opacities are seen throughout the right uppe r lobe with a 4.3 cm cavitary opacity. The left lung appears clear noting basilar atelectasis. No pne umothorax is seen. The skeletal structures are osteopenic. The bony thorax is grossly intact. IMPRESSION: 1. Moderate right pleural effusion with atelectasis/consolidation of the right lower lung. 2. Patchy airspace opacities are seen throughout the right upper lobe. This includes a 4.3 cm cavitar y opacity. This is better characterized on recent chest CT scans. 3. The left lung is grossly clear. 4. Emphysema. ACT 112: Negative or not required by law. Electronically signed by: Fabain Dubon M.D. 08/13/2023 7:41 AM
[2023-08-13] MEDS ORDERED: predniSONE 20 MG TAB PO SCH (09:00)
--- NOTE | 2023-08-13 11:24 | Hospitalist Progress Note ---
Date of Service August 13, 2023 Assessment & Plan (1) Metastatic carcinoma: (2) Lung cancer: (3) Hypoxia: Plan: Patient presented from pulmonary office for evaluation of metastatic lung carcinoma, evaluation by palliative care, and arrangement of home services. Patient recently diagnosed with metastatic lung carcinoma with metastases to the neck and adrenal gland. Patient was evaluated by oncology Dr. Lyn and was told this is an incurable disease. Patient was offered evaluation by radiation oncology for palliative treatment of neck mass. On admission patient was expressing wishes to remain a full code. In the ED, patient hypoxic on room air at 82%, requiring 6 L OxyMask on admission. CXR showing possible pneumonia. Patient afebrile, WBC 11 K. Check blood cultures, lactate, procalcitonin. Started IV Zosyn. Checked MRSA nasal swab Palliative care consulted Radiation oncology consulted Overnight, pt's clinical status deteriorated and pt was evaluated for ICU. Later, after further discussion with the patient and his mother, pt was made comfort care. Currently laying in bed comfortably, pt's mother is present at the bedside. (4) Tobacco use disorder: Plan: Nicotine patch Admission and Anticipated Discharge Date Admission Date: August 12, 2023 Subjective Pt seen in follow up of metastatic lung ca, cachexia, hypoxia. Overnight pt was made comfort care Currently laying in bed in NAD, appears comfortable. Pt's mother is present at the bedside, says he has been comfortable , but has not been talking today. Discussed with RN as well. Review of Systems Review of Systems: Unobtainable due to cognitive status Physical Exam Physical Exam: General Appearance: Frail, cachetic,chronically ill-appearing, no apparent distress Head: normocephalic, Atraumatic Eyes: normal inspection, EOMI Neck: supple, + cervical adenopathy on right side Respiratory/Chest: No accessory muscle use, decreased breath sounds Cardiovascular: S1, S2, No murmur Abdomen/GI:Soft, Non tender, Bowel sounds present Extremities/Musculoskeletal:normal inspection, no edema Neurologic/Psych: drowsy, moves extremities Skin: normal color, warm Results & Data Results & Data Vital Signs (Past 12 Hours) Vital Signs Pulse Pulse Resp BP Pulse Ox O2 Del Method 08/13/23 08:00 Room Air 08/13/23 05:51 95 H 16 84 L Room Air 08/13/23 01:00 101 H 20 83 L 08/13/23 00:30 103 H 28 H 77 L 08/13/23 00:02 112 H 20 109/68 94 08/13/23 00:00 108 H 31 H 95 08/12/23 23:45 109 H 25 H 92 08/12/23 23:31 110 H 33 H 95/76 L 91 08/12/23 23:30 109 H 27 H 88/67 L 92 Laboratory Results 08/12/23 08/12/23 08/12/23 Range/Units 22:49 21:47 20:16 POC Hgb 11.9 L 13.3 L (14.0-18.0) g/dl POC Hct 35 L 39 L (42-52) % Sample Site L Radial POC pH 7.43 7.38 (7.35-7.45) POC pCO2 38 43 (35-46) mmHg POC pO2 63 L < 32 L (80-95) mmHg POC HCO3 25 H 26 H (19-24) wendi/L POC Total CO2 26 27 (24-31) mmol/L POC Base Excess 1.0 1.0 (-9-1.8) wendi/L ABG pH (Temp Correct) 7.427 (7.35-7.45) ABG pCO2 (Temp Corrct 38 (35-46) mmHg POC ABG pO2 at Pt Temp 64 POC ABG O2 Sat 92.0 61.0 L (90-95) % Jose Angel Test Pass O2 Delivery Device BIPAP POC O2 Rate 16 POC FiO2 60 % IPAP 15 POC Sodium 132 L 135 (135-144) mmol/L Sodium (136-145) mmol/L POC Potassium 3.4 3.7 (3.3-5.0) mmol/L Potassium (3.5-5.1) mmol/L Chloride (98-107) mmol/L Carbon Dioxide (21-32) mmol/L Anion Gap (3-11) BUN (6-23) mg/dl Creatinine (0.6-1.4) mg/dl Est Cr Clr Drug Dosing ml/min Est GFR ( Amer) ml/min Est GFR (Non-Af Amer) ml/min BUN/Creatinine Ratio (10-20) Glucose (70-99(Fasting)) mg/dl Lactate (0.4-2.0) mmol/L Calcium (8.6-10.3) mg/dl Magnesium (1.7-2.4) mg/dl Total Bilirubin (0.2-1.0) mg/dl AST (13-39) U/L ALT (7-52) U/L Alkaline Phosphatase (34-104) U/L Troponin I High Sens 18.9 D (0-20) pg/ml Total Protein (6.0-8.3) gm/dl Albumin (3.4-5.0) gm/dl Globulin (2.5-4.0) gm/dl Albumin/Globulin Ratio (0.9-2) Procalcitonin (0-0.5) ng/ml TSH (0.300-4.500) uIu/ml Nasal Screen MRSA (PCR) (Negative) SARS-CoV-2, RNA, NAAT (NEGATIVE) 08/12/23 08/12/23 08/12/23 Range/Units 13:28 12:41 12:04 POC Hgb (14.0-18.0) g/dl POC Hct (42-52) % Sample Site POC pH (7.35-7.45) POC pCO2 (35-46) mmHg POC pO2 (80-95) mmHg POC HCO3 (19-24) wendi/L POC Total CO2 (24-31) mmol/L POC Base Excess (-9-1.8) wendi/L ABG pH (Temp Correct) (7.35-7.45) ABG pCO2 (Temp Corrct (35-46) mmHg POC ABG pO2 at Pt Temp POC ABG O2 Sat (90-95) % Jose Angel Test O2 Delivery Device POC O2 Rate POC FiO2 % IPAP POC Sodium (135-144) mmol/L Sodium (136-145) mmol/L POC Potassium (3.3-5.0) mmol/L Potassium (3.5-5.1) mmol/L Chloride (98-107) mmol/L Carbon Dioxide (21-32) mmol/L Anion Gap (3-11) BUN (6-23) mg/dl Creatinine (0.6-1.4) mg/dl Est Cr Clr Drug Dosing ml/min Est GFR ( Amer) ml/min Est GFR (Non-Af Amer) ml/min BUN/Creatinine Ratio (10-20) Glucose (70-99(Fasting)) mg/dl Lactate 1.1 (0.4-2.0) mmol/L Calcium (8.6-10.3) mg/dl Magnesium (1.7-2.4) mg/dl Total Bilirubin (0.2-1.0) mg/dl AST (13-39) U/L ALT (7-52) U/L Alkaline Phosphatase (34-104) U/L Troponin I High Sens (0-20) pg/ml Total Protein (6.0-8.3) gm/dl Albumin (3.4-5.0) gm/dl Globulin (2.5-4.0) gm/dl Albumin/Globulin Ratio (0.9-2) Procalcitonin (0-0.5) ng/ml TSH (0.300-4.500) uIu/ml Nasal Screen MRSA (PCR) Negative (Negative) SARS-CoV-2, RNA, NAAT NEGATIVE (NEGATIVE) 08/12/23 Range/Units 10:57 POC Hgb (14.0-18.0) g/dl POC Hct (42-52) % Sample Site POC pH (7.35-7.45) POC pCO2 (35-46) mmHg POC pO2 (80-95) mmHg POC HCO3 (19-24) wendi/L POC Total CO2 (24-31) mmol/L POC Base Excess (-9-1.8) wendi/L ABG pH (Temp Correct) (7.35-7.45) ABG pCO2 (Temp Corrct (35-46) mmHg POC ABG pO2 at Pt Temp POC ABG O2 Sat (90-95) % Jose Angel Test O2 Delivery Device POC O2 Rate POC FiO2 % IPAP POC Sodium (135-144) mmol/L Sodium 136 (136-145) mmol/L POC Potassium (3.3-5.0) mmol/L Potassium 4.1 (3.5-5.1) mmol/L Chloride 97 L (98-107) mmol/L Carbon Dioxide 29 (21-32) mmol/L Anion Gap 10 (3-11) BUN 10 (6-23) mg/dl Creatinine 0.62 (0.6-1.4) mg/dl Est Cr Clr Drug Dosing 125.9 ml/min Est GFR ( Amer) 127.6 ml/min Est GFR (Non-Af Amer) 110.1 ml/min BUN/Creatinine Ratio 16.1 (10-20) Glucose 103 H (70-99(Fasting)) mg/dl Lactate (0.4-2.0) mmol/L Calcium 10.0 (8.6-10.3) mg/dl Magnesium 2.2 (1.7-2.4) mg/dl Total Bilirubin 0.6 (0.2-1.0) mg/dl AST 17 (13-39) U/L ALT 10 (7-52) U/L Alkaline Phosphatase 217 H (34-104) U/L Troponin I High Sens 13.4 (0-20) pg/ml Total Protein 7.8 (6.0-8.3) gm/dl Albumin 3.8 (3.4-5.0) gm/dl Globulin 4.0 (2.5-4.0) gm/dl Albumin/Globulin Ratio 1.0 (0.9-2) Procalcitonin 0.10 (0-0.5) ng/ml TSH 1.509 (0.300-4.500) uIu/ml Nasal Screen MRSA (PCR) (Negative) SARS-CoV-2, RNA, NAAT (NEGATIVE) Medications Administered Current Inpatient Medications Glycopyrrolate (Glycopyrrolate 0.2 Mg/Ml Vial) 0.2 mg IV Q4H PRN PRN Reason: Secretions or Pulm Congestion Stop: 09/11/23 23:37 Promethazine HCl 6.25 mg/ (Sodium Chloride) 50.25 mls @ 201 mls/hr IV Q6H PRN PRN Reason: Nausea And Vomiting Stop: 09/11/23 21:11 Lorazepam 0.5 mg/ Syringe 0.5 mls @ 2 mls/min IV Q4H PRN; Protocol PRN Reason: Anxiety/Agitation Stop: 09/11/23 23:37 Last Admin: 08/13/23 03:27 Dose: 2 mls/min Lorazepam 0.5 mg/ Syringe 0.5 mls @ 2 mls/min IV Q8H BONIFACIO Stop: 09/12/23 00:00 Last Admin: 08/13/23 09:41 Dose: 2 mls/min Promethazine HCl 12.5 mg/ (Sodium Chloride) 50.5 mls @ 202 mls/hr IV Q6H PRN PRN Reason: Nausea &/or Vomiting Stop: 09/11/23 23:37 Levalbuterol HCl (Levalbuterol Hcl 0.63 Mg/3 Ml Neb) 0.63 mg NEB Q6R PRN; Protocol PRN Reason: Shortness Of Breath Or Wheezing Stop: 09/11/23 18:59 Last Admin: 08/12/23 23:07 Dose: 0.63 mg Lorazepam (Lorazepam 0.5 Mg Tab) 0.5 mg PO Q4H PRN PRN Reason: Anxiety/Agitation Stop: 09/11/23 23:37 Miscellaneous (Remove Nicoderm Patch) 1 each N/A DAILY@1659 [facility] Stop: 09/11/23 16:58 Last Admin: 08/12/23 17:41 Dose: Not Given Morphine Sulfate (Morphine Sulfate 10 Mg/0.5 Ml Udp) 5 mg PO Q3H PRN PRN Reason: Pain or Respiratory Distress Stop: 08/26/23 23:37 Morphine Sulfate (Morphine Sulfate 2 Mg/Ml Carp) 3 mg IV Q4H PRN PRN Reason: Pain or Respiratory Distress Stop: 08/26/23 23:37 Last Admin: 08/13/23 03:27 Dose: 3 mg Nicotine (Nicotine 21 Mg/24 Hr Tdsy) 21 mg TD DAILY@1700 [facility] Stop: 09/11/23 16:59 Last Admin: 08/12/23 17:10 Dose: 21 mg Ondansetron HCl (Ondansetron Inj 2 Mg/Ml 2 Ml Vial) 4 mg IV Q4H PRN PRN Reason: Nausea &/or Vomiting Stop: 09/11/23 23:37
[2023-08-13] MEDS: NICOTINE 21 MG/24 HR TDSY TD SCH (15:50)
[2023-08-13] MEDS: GLYCOPYRROLATE 0.2 MG/ML VIAL IV PRN (19:45)
[2023-08-14] MEDS: LORazepam 0.5 MG in SYRINGE 0.25 ML IV SCH ×3 (00:34→15:00)
[2023-08-14] MEDS: GLYCOPYRROLATE 0.2 MG/ML VIAL IV PRN ×2 (00:59→20:01)
--- NOTE | 2023-08-14 15:01 | Hospitalist Progress Note ---
Date of Service August 14, 2023 Assessment & Plan (1) Metastatic carcinoma: (2) Lung cancer: (3) Hypoxia: Plan: Patient presented from pulmonary office for evaluation of metastatic lung carcinoma, evaluation by palliative care, and arrangement of home services. Patient recently diagnosed with metastatic lung carcinoma with metastases to the neck and adrenal gland. Patient was evaluated by oncology Dr. Lyn and was told this is an incurable disease. Patient was offered evaluation by radiation oncology for palliative treatment of neck mass. On admission patient was expressing wishes to remain a full code. In the ED, patient hypoxic on room air at 82%, requiring 6 L OxyMask on admission. CXR showing possible pneumonia. Patient afebrile, WBC 11 K. Bl Cx w/ no growth 48 hours. Started IV Zosyn. Checked MRSA nasal swab Palliative care consulted Radiation oncology consulted Overnight of 08/12-08/13, pt's clinical status deteriorated and pt was evaluated for ICU. Later, after further discussion with the patient and his mother, pt was made comfort care. Currently laying in bed comfortably, pt's family present at the bedside. No lab draws. comfort measures. (4) Tobacco use disorder: Plan: Nicotine patch Admission and Anticipated Discharge Date Admission Date: August 12, 2023 Subjective Patient was seen and examined at bedside. Patient was lying in bed, on room air, comfortable, patient appears lethargic and tired, denies any pain or shortness of breath. Patient's family at bedside, answered their queries. Physical Exam Physical Exam: General Appearance: Frail, cachetic,chronically ill-appearing, no apparent distress, on Room Air Head: normocephalic, Atraumatic Eyes: normal inspection, EOMI Neck: supple, + cervical adenopathy on right side Respiratory/Chest: No accessory muscle use, decreased breath sounds Cardiovascular: S1, S2, No murmur Abdomen/GI:Soft, Non tender, Bowel sounds present Extremities/Musculoskeletal:normal inspection, no edema Neurologic/Psych: drowsy, moves extremities Skin: normal color, warm Results & Data Results & Data Vital Signs (Past 12 Hours) Vital Signs O2 Del Method 08/14/23 08:00 Room Air
[2023-08-14] MEDS: NICOTINE 21 MG/24 HR TDSY TD SCH (16:59)
[2023-08-14] MEDS: MoRPHine SULFATE 2 MG/ML CARP IV PRN (16:59)
--- NOTE | 2023-08-14 18:07 | Electrocardiogram Report ---
Test Reason : Blood Pressure : / mmHG Vent. Rate : 125 BPM Atrial Rate : 125 BPM P-R Int : 152 ms QRS Dur : 108 ms QT Int : 338 ms P-R-T Axes : 000 -77 078 degrees QTc Int : 487 ms Poor data quality, interpretation may be adversely affected Sinus tachycardia with Premature atrial complexes Left axis deviation Anterior infarct (cited on or before 12-AUG-2023) Abnormal ECG When compared with ECG of 12-AUG-2023 10:46, Premature atrial complexes are now Present TX interval has decreased Incomplete right bundle branch block is no longer Present Confirmed by Moo Peres ([id number]) on 08/14/2023 6:06:39 PM Referred By: Bhavesh Sutherland Confirmed By:Vito Peres
[2023-08-14] MEDS: LORazepam 0.5 MG in SYRINGE 0.25 ML IV PRN (20:46)
[2023-08-15] MEDS: LORazepam 0.5 MG in SYRINGE 0.25 ML IV SCH ×4 (00:19→23:42)
[2023-08-15] MEDS: GLYCOPYRROLATE 0.2 MG/ML VIAL IV PRN ×2 (02:09→08:57)
[2023-08-15] MEDS: LORazepam 0.5 MG in SYRINGE 0.25 ML IV PRN ×2 (08:05→19:33)
[2023-08-15] MEDS: MoRPHine SULFATE 2 MG/ML CARP IV PRN ×2 (14:25→19:34)
--- NOTE | 2023-08-15 15:09 | Hospitalist Progress Note ---
Date of Service August 15, 2023 Assessment & Plan (1) Metastatic carcinoma: (2) Lung cancer: (3) Hypoxia: Plan: Patient presented from pulmonary office for evaluation of metastatic lung carcinoma, evaluation by palliative care, and arrangement of home services. Patient recently diagnosed with metastatic lung carcinoma with metastases to the neck and adrenal gland. Patient was evaluated by oncology Dr. Lyn and was told this is an incurable disease. Patient was offered evaluation by radiation oncology for palliative treatment of neck mass. On admission patient was expressing wishes to remain a full code. In the ED, patient hypoxic on room air at 82%, requiring 6 L OxyMask on admission. CXR showing possible pneumonia. Patient afebrile, WBC 11 K. Bl Cx w/ no growth 48 hours. Started IV Zosyn. Checked MRSA nasal swab Palliative care consulted Radiation oncology consulted Overnight of 08/12-08/13, pt's clinical status deteriorated and pt was evaluated for ICU. Later, after further discussion with the patient and his mother, pt was made comfort care. Currently laying in bed comfortably, pt's mother present at the bedside. No lab draws. comfort measures. Pt appears comfortable. (4) Tobacco use disorder: Plan: Nicotine patch Admission and Anticipated Discharge Date Admission Date: August 12, 2023 Subjective Patient was seen and examined at bedside. Patient was lying in bed, on room air, comfortable, patient appears lethargic and tired, denies any pain or shortness of breath. Patient's mother at bedside, answered her queries. Physical Exam Physical Exam: General Appearance: Frail, cachetic,chronically ill-appearing, no apparent distress, on Room Air Head: normocephalic, Atraumatic Eyes: normal inspection, EOMI Neck: supple, + cervical adenopathy on right side Respiratory/Chest: No accessory muscle use, decreased breath sounds Cardiovascular: S1, S2, No murmur Abdomen/GI:Soft, Non tender, Bowel sounds present Extremities/Musculoskeletal:normal inspection, no edema Neurologic/Psych: drowsy, moves extremities Skin: normal color, warm Results & Data Results & Data Vital Signs (Past 12 Hours) Vital Signs O2 Del Method 08/15/23 07:45 Room Air
[2023-08-15] MEDS: NICOTINE 21 MG/24 HR TDSY TD SCH (17:39)
--- NOTE | 2023-08-16 03:13 | Communication Note ---
Date of Service: August 16, 2023
--- NOTE | 2023-08-16 03:14 | Death Pronouncement Note ---
Date of Service August 16, 2023 Pronouncement Note Admission Date August 12, 2023 Additional Data Attending physician: Katerine Neville MD
--- NOTE | 2023-08-16 12:45 | Discharge Summary ---
Date of Service August 16, 2023 Admission HPI Per Admitting Provider 58-year-old male with PMH history of DVT s/p treatment, BPH, metastatic lung carcinoma to the neck and adrenal gland, and other problems listed below who presents to the ED by referral of the pulmonary office. Patient is a poor historian. History obtained from discussion with pulmonary Callum Ott PA-C and review of outpatient PCP, oncology, pulmonary records. Patient recently diagnosed with metastatic lung carcinoma. He was evaluated by oncology on 08/03 and was told this is an incurable disease. He was offered evaluation by radiation oncology for palliative treatment to the neck mass. Patient is very t hin and cachectic appearing. He reports some neck pain but otherwise offers no complaints. Denies shortness of breath and chest pain. No lightheadedness or dizziness. Denies abdominal pain, nausea, vomiting, diarrhea. Reports he has lost some weight however is unsure how much. No urinary symptoms. In the ED, patient was hypoxic on room air at 82%, currently requiring 6 L OxyMask. Labs unremarkable. CXR shows redemonstration of the right upper lobe mass. Significant increase in right lung airspace opacities. This may reflect pneumonia or post radiation change in the appropriate clinical setting. However, postobstructive pneumonia/atelectasis given increase in volume loss could appear similar. Patient was given IVF and IV fentanyl. Admission Exam Per Admitting Provider Vitals signs as noted above General Appearance: Frail, cachexia, ill-appearing, no apparent distress Head: normocephalic, Atraumatic Eyes: normal inspection, EOMI Neck: supple, Trachea midline, + cervical adenopathy on right side Respiratory/Chest: B/L air entry, CTA, No accessory muscle use Cardiovascular: S1, S2, No murmur, +Tachycardia Abdomen/GI:Soft, Non tender, Bowel sounds present Extremities/Musculoskeletal:normal inspection, no edema Neurologic/Psych:AAOX2, grossly no focal neurological deficits Skin: normal color, warm Principal Diagnosis Metastatic lung cancer Discharge Exam Undersigned didn't pronounce nor was available in the hospital at the time. Discharge Data Allergies Allergy/AdvReac Type Severity Reaction Status Date / Time No Known Allergies Allergy Verified 08/12/23 11:26 Consultations 08/12/23 11:49 ED Decision to Admit Stat 08/12/23 14:49 Consult Palliative Care Routine 08/12/23 22:37 Consult Software Engineer Web Services Routine Ordered Studies 08/12/23 21:50 CT angio chest PE protocol Stat Hospital Course (1) Metastatic carcinoma: (2) Lung cancer: (3) Hypoxia: Patient presented from pulmonary office for evaluation of metastatic lung carcinoma, evaluation by palliative care, and arrangement of home services. Patient recently diagnosed with metastatic lung carcinoma with metastases to the neck and adrenal gland. Patient was evaluated by oncology Dr. Lyn and was told this is an incurable disease. Patient was offered evaluation by radiation oncology for palliative treatment of neck mass. On admission patient was expressing wishes to remain a full code. In the ED, patient hypoxic on room air at 82%, requiring 6 L OxyMask on admission. CXR showing possible pneumonia. Patient afebrile, WBC 11 K. Bl Cx w/ no growth 48 hours. Started IV Zosyn. Checked MRSA nasal swab Palliative care consulted Radiation oncology consulted Overnight of 08/12-08/13, pt's clinical status deteriorated and pt was evaluated for ICU. Later, after further discussion with the patient and his mother, pt was made comfort care. 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 Pt was pronounced 03:25 AM of 08/16/2023. Cause of - Hypoxic respiratory failure 2/2 post-obstructive pneumonia iso metastatic lung carcinoma. Home Health Attestation I certify that this patient is under my care and that I, or a physicians sales and marketing assistant working with me, had a face to-face encounter that meets the home health [id number] encounter requirements with this patient. The encounter with the patient was in whole, or in part, for the following medical condition, which is the primary reason for home health care (list medical condition): I certify that, based on my findings, the following services are medically necessary home health services: My clinical findings support the need for the above services because: Further, I certify that my clinical findings support that this patient is homebound (i.e. absences from home require considerable and taxing effort and are for medical reasons or congregational services or infrequently or of short duration when for other reasons) because: Certification for Home Health Services: Based on the above findings, I certify that this patient is confined to the home and needs intermittent long term care, physical therapy and/or speech therapy or continues to need occupational therapy. The patient is under my care, and I have initiated the establishment of the plan of care. This patient will be followed by a physician who will periodically review the plan of care. Total Time Total Time Spent Total Time Spent (In Minutes): 25 Discharge Plan Discharge Items Patient Disposition: Other Date/Time: 08/16/23 03:25
== END 2023-08-16 05:15 | disposition expired | DRG 180 ==
LOC: ED 09:02 → EDINP 12:13 → SUATTDRO 12:13 → 3E 14:50 → 2E 19:53 → 1E 22:32 → 3E 08-13 05:43